=== PATIENT | female | born 2000 | race Hispanic/Latino ===

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

== ENCOUNTER 2019-04-20 16:28 | Emergency (ER) | payer OTHER, SELFPAY ==
[2019-04-20 20:17] LABS: Urine Bacteria <20 /HPF (<20); Urine Culture Reflex Order NOT NEEDED; Urine RBC <5 /HPF (NONE SEEN)
[2019-04-20 20:29] LABS: Urine Blood NEGATIVE (NEG); Urine Glucose NEGATIVE (NEG); Urine Protein NEGATIVE (NEG); Urine pH 5.5 (5.0-7.0)
--- NOTE | 2019-04-20 20:45 | ER ---
Nurse's Notes [facility] Name: Sowmya Cooley Age: 19 yrs Sex: Female : 2000 Arrival Date: 04/20/2019 Time: 16:27 Bed 13 Private MD: Diagnosis: Encounter for screening, unspecified Presentation: 04/20 17:07 Presenting complaint: Patient states: i am having kidney pain in my left side, this tw2 started like a month ago with extreme nausea, i went to the [facility]ryl yesterday and they gave me antibiotics for a UTI because of the puss in my eye, i have been only taking half of the pill and i have been getting dizzy even with half of the pill. gloria prescribed me an antibiotic that didn't make me dizzy. Transition of care: patient was not received from another setting of care. Onset of symptoms was April 20, 2019. Risk Assessment: Do you want to hurt yourself or someone else? Patient reports no desire to harm self or others. Initial Sepsis Screen: Does the patient meet any 2 criteria? No. Patient's initial sepsis screen is negative. Does the patient have a suspected source of infection? No. Patient's initial sepsis screen is negative. Care prior to arrival: None. 17:07 Method Of Arrival: Ambulatory tw2 17:07 Acuity: ADRYAN 3 tw2 17:10 Presenting complaint: Patient states: there is a possibility of me being . tw2 Triage Assessment: 17:10 General: Appears in no apparent distress. Behavior is calm, cooperative, appropriate tw2 for age. Pain: Complains of pain in left mid back. 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 - Social history:: Smoking status: . - Ebola Screening: : Patient denies travel to an Ebola-affected area in the 21 days before illness onset. Screenin:20 Abuse screen: Denies threats or abuse. Denies injuries from another. Nutritional lp1 screening: No deficits noted. Tuberculosis screening: No symptoms or risk factors identified. Fall Risk None identified. Assessment: 19:20 General: Appears in no apparent distress. Behavior is calm, cooperative, appropriate lp1 for age. Pain: Complains of pain in left low back Pain currently is 3 out of 10 on a pain scale. Neuro: Level of Consciousness is awake, alert, obeys commands, Oriented to person, place, time, situation. Cardiovascular: Patient's skin is warm and dry. Respiratory: Respiratory effort is even, unlabored. GI: No signs and/or symptoms were reported involving the gastrointestinal system. : Reports pain in left flank(s). EENT: No signs and/or symptoms were reported regarding the EENT system. Derm: Skin is pink, warm \\T\\ dry. Musculoskeletal: No signs and/or symptoms reported regarding the musculoskeletal system. 21:00 Reassessment: Orthostatic blood pressures completed by tech; Patient states feeling lp1 dizzy upon standing. 21:25 Reassessment: Patient refusing to have labs and medications; States "I have really bad lp1 anxiety and I haven't eaten in about 9 hours so that may be why I got a little dizzy"; Provider notified. Vital Signs: 17:09 BP 147 / 90; Pulse 106; Resp 18; Temp 98.7(O); Pulse Ox 100% on R/A; Weight 58.06 kg tw2 (R); Height 5 ft. 5 in. (165.10 cm) (R); Pain 4/10; 20:51 BP 135 / 77; Pulse 99; Resp 18; oe 20:53 BP 149 / 92; Pulse 101; Resp 18; oe 20:55 BP 146 / 101; Pulse 118; Resp 18; oe 17:09 Body Mass Index 21.30 (58.06 kg, 165.10 cm) tw2 ED Course: 16:27 Patient arrived in ED. as 17:09 Triage completed. tw2 17:09 Arm band placed on. tw2 17:27 Angélica Rush FNP-C [facility]. snw 17:27 Morgan Humphrey MD is Attending Physician. snw 17:45 Urine collected: clean catch specimen, clear, by Carmen Johnston. dh3 19:13 Urine Culture Sent. dh3 19:13 Urine Microscopic Only Sent. dh3 19:19 Lorena Herman, RN is Primary Nurse. lp1 19:21 Patient has correct armband on for positive identification. lp1 21:33 No provider procedures requiring assistance completed. Patient did not have IV access lp1 during this emergency room visit. Administered Medications: No medications were administered Outcome: 20:44 Discharge ordered by . snw 21:33 Discharged to home ambulatory, with significant other. lp1 21:33 Condition: good 21:33 Discharge instructions given to patient, Instructed on discharge instructions, follow up and referral plans. Demonstrated understanding of instructions, follow-up care. 21:37 Patient left the ED. lp1 Signatures: Angélica Rush, PLATEN PRESS FEEDER-C PLATEN PRESS FEEDER-Csnw Patricia Gómez Laura, RN RN lp1 Autumn Foster RN RN tw2 Fabiano Peña Deanna 3
--- NOTE | 2019-04-20 20:46 | EDPHYS ---
Physician Documentation [facility] Name: Sowmya Cooley Age: 19 yrs Sex: Female : 2000 Arrival Date: 04/20/2019 Time: 16:27 Bed 13 Private MD: ED Physician Morgan Humphrey HPI: 04/20 20:48 This 19 yrs old Female presents to ER via Ambulatory with complaints of Flank snw Pain. 20:48 The patient complains of pain in the mid back area. The pain does not radiate. Onset: snw The symptoms/episode began/occurred gradually. Modifying factors: The symptoms are alleviated by nothing. the symptoms are aggravated by nothing. Severity of pain: At its worst the pain was moderate. The patient has experienced similar episodes in the past, multiple times. The patient has been recently seen by a physician: the patient's primary care provider, with similar presenting complaints, was given a prescription for antibiotics. pt states abx made her dizzy so she didn't want to continue them. 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 - Social history:: Smoking status: . - Ebola Screening: : Patient denies travel to an Ebola-affected area in the 21 days before illness onset. ROS: 20:46 Constitutional: Negative for fever, chills, and weight loss. snw 20:46 Eyes: Negative for injury, pain, redness, and discharge, ENT: Negative for injury, pain, and discharge, Neck: Negative for injury, pain, and swelling, Cardiovascular: Negative for chest pain, palpitations, and edema, Respiratory: Negative for shortness of breath, cough, wheezing, and pleuritic chest pain. 20:46 Back: Negative for injury and pain, : Negative for injury, bleeding, discharge, and swelling, MS/Extremity: Negative for injury and deformity, Skin: Negative for injury, rash, and discoloration. 20:46 Constitutional: Positive for body aches, malaise. 20:46 Abdomen/GI: Positive for constipation, abdominal cramps. 20:46 Neuro: Positive for dizziness. Exam: 20:45 Constitutional: This is a well developed, well nourished patient who is awake, alert, snw and in no acute distress. Head/Face: Normocephalic, atraumatic. Eyes: Pupils equal round and reactive to light, extra-ocular motions intact. Lids and lashes normal. Conjunctiva and sclera are non-icteric and not injected. Cornea within normal limits. Periorbital areas with no swelling, redness, or edema. ENT: Nares patent. No nasal discharge, no septal abnormalities noted. Tympanic membranes are normal and external auditory canals are clear. Oropharynx with no redness, swelling, or masses, exudates, or evidence of obstruction, uvula midline. Mucous membranes moist. Neck: Trachea midline, no thyromegaly or masses palpated, and no cervical lymphadenopathy. Supple, full range of motion without nuchal rigidity, or vertebral point tenderness. No Meningismus. Chest/axilla: Normal chest wall appearance and motion. Nontender with no deformity. No lesions are appreciated. Cardiovascular: Regular rate and rhythm with a normal S1 and S2. No gallops, murmurs, or rubs. Normal PMI, no JVD. No pulse deficits. Respiratory: Lungs have equal breath sounds bilaterally, clear to auscultation and percussion. No rales, rhonchi or wheezes noted. No increased work of breathing, no retractions or nasal flaring. Back: No spinal tenderness. No costovertebral tenderness. Full range of motion. Skin: Warm, dry with normal turgor. Normal color with no rashes, no lesions, and no evidence of cellulitis. MS/ Extremity: Pulses equal, no cyanosis. Neurovascular intact. Full, normal range of motion. Neuro: Awake and alert, GCS 15, oriented to person, place, time, and situation. Cranial nerves II-XII grossly intact. Motor strength 5/5 in all extremities. Sensory grossly intact. Cerebellar exam normal. Normal gait. Psych: Awake, alert, with orientation to person, place and time. Behavior, mood, and affect are within normal limits. 20:45 Abdomen/GI: Inspection: abdomen appears normal, Bowel sounds: normal, Palpation: abdomen is soft and non-tender, in all quadrants. Vital Signs: 17:09 BP 147 / 90; Pulse 106; Resp 18; Temp 98.7(O); Pulse Ox 100% on R/A; Weight 58.06 kg tw2 (R); Height 5 ft. 5 in. (165.10 cm) (R); Pain 4/10; 20:51 BP 135 / 77; Pulse 99; Resp 18; oe 20:53 BP 149 / 92; Pulse 101; Resp 18; oe 20:55 BP 146 / 101; Pulse 118; Resp 18; oe 17:09 Body Mass Index 21.30 (58.06 kg, 165.10 cm) tw2 MDM: 19:18 Patient medically screened. snw 20:47 Data reviewed: vital signs, nurses notes. Data interpreted: Pulse oximetry: on room air snw is 100 %. Interpretation: normal. Counseling: I had a detailed discussion with the patient and/or guardian regarding: the historical points, exam findings, and any diagnostic results supporting the discharge/admit diagnosis, the presence of at least one elevated blood pressure reading (>120/80) during this emergency department visit, lab results, the need for outpatient follow up, to return to the emergency department if symptoms worsen or persist or if there are any questions or concerns that arise at home. Special discussion: Based on the patient's Hx, exam, and Dx evaluation, there is no indication for emergent surgery or inpatient Tx. It is understood by the patient/guardian that if the Sx's persist or worsen they need to return immediately for re-evaluation. Based on the history and exam findings, there is no indication for further emergent testing or inpatient evaluation. I discussed with the patient/guardian the need to see the primary care provider for further evaluation of the symptoms. 04/20 17:27 Order name: Urine Culture snw 04/20 17:27 Order name: Urine Microscopic Only; Complete Time: 20:19 snw 04/20 18:21 Order name: Urine Dipstick--Ancillary (enter results); Complete Time: 20:30 sp 04/20 18:21 Order name: Test Urine - POC; Complete Time: 20:30 sp 04/20 17:27 Order name: Urine Test (obtain specimen); Complete Time: 19:12 snw 04/20 17:27 Order name: Urine Dipstick-Ancillary (obtain specimen); Complete Time: 19:11 snw 04/20 20:45 Order name: Orthostatics; Complete Time: 21:00 snw Administered Medications: No medications were administered Disposition: 04/21 09:00 Co-signature as Attending Physician, Morgan Humphrey MD I agree with the assessment and kdr plan of care. Disposition: 04/20/19 20:44 Discharged to Home. Impression: Encounter for screening, unspecified. - Condition is Stable. - Discharge Instructions: Abdominal Pain, Adult, Constipation, Adult, Hypertension, Urinary Tract Infection, Adult, Rehydration, Adult. - School release form, Family Work Release, Medication Reconciliation Form, Thank You Letter, Antibiotic Education, Prescription Opioid Use form. - Follow up: Private Physician; When: Tomorrow; Reason: Recheck today's complaints, Continuance of care, Re-evaluation by your physician. Follow up: Emergency Department; When: As needed; Reason: Worsening of condition. Signatures: Dispatcher [employer] EDIA Morgan Humphrey MD MD [facility] Angélica Rush, GRADER MEAT-C GRADER MEAT-Csnw Lorena Herman, RN RN lp1 Autumn Foster RN RN tw2 Corrections: (The following items were deleted from the chart) 04/20 21:37 20:44 04/20/2019 20:44 Discharged to Home. Impression: Encounter for screening, lp1 unspecified. Condition is Stable. Forms are Medication Reconciliation Form, Thank You Letter, Antibiotic Education, Prescription Opioid Use. Follow up: Private Physician; When: Tomorrow; Reason: Recheck today's complaints, Continuance of care, Re-evaluation by your physician. Follow up: Emergency Department; When: As needed; Reason: Worsening of condition. snw
[2019-04-20] MEDS ORDERED: NA CHLORIDE 0.9% 0 ML ONE (21:12)
== END 2019-04-20 21:37 | disposition home or self-care (01) ==
LOC: ER 16:28
DX: Z13.9 Encounter for screening, unspecified (principal)
CPT/HCPCS: 81003; 81015; 81025; 87086; 87088; 99283; J7030

== ENCOUNTER 2019-04-21 21:06 | Emergency (ER) | payer SELFPAY ==
[2019-04-21 22:03] LABS: Barbiturates NEGATIVE (NEGATIVE); Benzodiazepines NEGATIVE (NEGATIVE); Cocaine NEGATIVE (NEGATIVE); METHAMPHETAM NEGATIVE (NEGATIVE); Methadone NEGATIVE (NEGATIVE); Opiates NEGATIVE (NEGATIVE); Phencyclidine NEGATIVE (NEGATIVE); THC Cannibis NEGATIVE (NEGATIVE)
[2019-04-21 22:08] LABS: Urine Blood NEGATIVE (NEG); Urine Glucose NEGATIVE (NEG); Urine Protein NEGATIVE (NEG); Urine pH 6.5 (5.0-7.0)
[2019-04-21 22:21] LABS: Urine Bacteria NONE SEEN /HPF (<20); Urine RBC <5 /HPF (NONE SEEN)
[2019-04-21 22:22] LABS: Urine Culture Reflex Order NOT NEEDED
[2019-04-21] MEDS ORDERED: NA CHLORIDE 0.9% 1,000 ML ONE (22:31)
[2019-04-21 23:05] LABS: Absolute Lymphocytes (CBC) 1.6 K/uL (0.7-4.9); Basophils % 0.5 % (0-1.3); Hematocrit 42.6 % (36.0-45.0); Lymphocytes % 20.2 % (15.3-44.8); MPV 9.9 fL (7.6-11.3); RBC Red Blood Cell Count 4.75 M/uL (3.86-4.86)
[2019-04-21 23:36] LABS: ALT/SGPT 23 U/L (12-78); AST/SGOT 15 U/L (15-37); Albumin 4.2 g/dL (3.4-5.0); Alkaline Phosphatase 94 U/L (45-117); BUN Blood Urea Nitrogen 18 mg/dL (7-18); Bicarbonate 25 mmol/L (21-32); Bilirubin Direct < 0.1 mg/dL (0-0.2); Bilirubin Total 0.3 mg/dL (0.2-1.0); Glucose Level 101 mg/dL (74-106); Lipase 70 U/L (73-393); Potassium 3.6 mmol/L (3.5-5.1); Protein, Total 7.7 g/dL (6.4-8.2); Sodium Level 141 mmol/L (136-145)
--- NOTE | 2019-04-21 23:37 | ER ---
Nurse's Notes [facility] Name: Sowmya Cooley Age: 19 yrs Sex: Female : 2000 Arrival Date: 04/21/2019 Time: 21:09 Bed 24 Private MD: Diagnosis: Weakness;Dizziness and giddiness Presentation: 04/21 21:12 Presenting complaint: Patient states: "I can't even stand up straight because I feel aj1 really dizzy, and I'm taking antibiotics but today it really hit me." Patient reports that she is taking antibiotics for a UTI. Patient reports diarrhea and headache. Denies fever. Transition of care: patient was not received from another setting of care. Onset of symptoms was April 21, 2019. Risk Assessment: Do you want to hurt yourself or someone else?. Initial Sepsis Screen: Does the patient meet any 2 criteria? RR > 20 per min. HR > 90 bpm. No. Patient's initial sepsis screen is negative. Does the patient have a suspected source of infection? No. Patient's initial sepsis screen is negative. Care prior to arrival: None. 21:12 Method Of Arrival: Wheelchair aj1 21:12 Acuity: ADRYAN 3 aj1 Triage Assessment: 21:15 General: Appears in no apparent distress. uncomfortable, Behavior is calm, cooperative, aj1 appropriate for age. Pain: Complains of pain in top of head Pain currently is 4 out of 10 on a pain scale. Neuro: Level of Consciousness is awake, alert, obeys commands, Oriented to person, place, time, situation. Cardiovascular: Denies chest pain, Patient's skin is warm and dry. Respiratory: Airway is patent Respiratory effort is even, unlabored, Respiratory pattern is regular, symmetrical. 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 - Social history:: Smoking status: Patient/guardian denies using tobacco. - Ebola Screening: : Patient denies travel to an Ebola-affected area in the 21 days before illness onset. Screenin:23 Abuse screen: Denies threats or abuse. Denies injuries from another. Nutritional ak1 screening: No deficits noted. Tuberculosis screening: No symptoms or risk factors identified. Fall Risk None identified. Assessment: 21:44 General: Appears in no apparent distress. Behavior is cooperative, anxious. Neuro: ak1 Level of Consciousness is awake, alert, obeys commands, Oriented to person, place, time, situation, Moves all extremities. Full function. Cardiovascular: Rhythm is sinus tachycardia. Respiratory: Airway is patent Respiratory effort is even, unlabored, Respiratory pattern is regular. GI: Abdomen is non-distended, Bowel sounds present X 4 quads. Reports diarrhea, nausea. : Reports burning with urination, urinary frequency. EENT: No signs and/or symptoms were reported regarding the EENT system. Derm: No signs and/or symptoms reported regarding the dermatologic system. Musculoskeletal: No signs and/or symptoms reported regarding the musculoskeletal system. 22:43 Reassessment: Patient appears in no apparent distress at this time. pt c/o dizziness ak1 with standing and sitting. pt stated dizziness decreased when lying flat. 23:31 Reassessment: pt is extremely anxious. Dr. Bowens at bedside. ak1 04/22 00:01 Reassessment: Patient appears in no apparent distress at this time. Patient and/or ak1 family updated on plan of care and expected duration. Pain level reassessed. Patient is alert, oriented x 3, equal unlabored respirations, skin warm/dry/pink. pt with steady gait. 00:24 Reassessment: pt referred to Dr. Burton and cardiology if pt continues to have ak1 palpitations and anxiety. pt left with family via steady gait. pt resp even and unlabored. Vital Signs: 04/21 21:15 BP 141 / 88; Pulse 131; Resp 24; Temp 99.8; Pulse Ox 100% on R/A; Weight 58.06 kg (R); aj1 Height 5 ft. 5 in. (165.10 cm) (R); Pain 4/10; 21:43 BP 138 / 97 LA Sitting (auto/reg); Pulse 96; Resp 18; Pulse Ox 99% on R/A; ak1 22:18 BP 127 / 94 LA Supine (auto/reg); Pulse 97; Resp 16; ak1 22:20 BP 167 / 106 LA Standing (auto/reg); Pulse 111; Resp 22; ak1 22:43 BP 138 / 94; Pulse 92; Resp 18; Pulse Ox 100% on R/A; ak1 23:32 BP 130 / 85; Pulse 108; Resp 18; Temp 99.1(O); Pulse Ox 99% on R/A; ak1 21:15 Body Mass Index 21.30 (58.06 kg, 165.10 cm) aj1 ED Course: 21:09 Patient arrived in ED. cl3 21:15 Triage completed. aj1 21:15 Arm band placed on Patient placed in an exam room. aj1 21:17 Hodan Rousseau, RN is Primary Nurse. ak1 21:23 Patient has correct armband on for positive identification. Bed in low position. Call ak1 light in reach. Side rails up X 1. Adult w/ patient. Pulse ox on. NIBP on. 22:18 Deuce Bowens MD is Attending Physician. [facility] [place] 22:40 Initial lab(s) drawn, by ga, sent to lab. Inserted saline lock: 20 gauge in right lt1 antecubital area, using aseptic technique. 22:54 EKG done, by ED staff. lt1 04/22 00:01 No provider procedures requiring assistance completed. IV discontinued, intact, ak1 bleeding controlled, No redness/swelling at site. Pressure dressing applied. 01:30 Chest Pa And Lat (2 Views) XRAY In Process Unspecified. EDMS Administered Medications: 04/21 22:43 Drug: NS 0.9% 1000 ml Route: IV; Rate: 1 bolus; Site: right antecubital; ak1 04/22 00:02 Follow up: IV Status: Order to discontinue infusion ak1 Outcome: 04/21 23:36 Discharge ordered by . [facility] [place] 04/22 00:01 Condition: good ak1 Discharge instructions given to patient, family, Instructed on discharge instructions, follow up and referral plans. Demonstrated understanding of instructions, follow-up care. 00:23 Discharged to home ambulatory, with family. ak1 00:25 Patient left the ED. ak1 Signatures: Dispatcher [employer] EDMS Batsheva Desai RN RN aj1 Anderson, Corey, MD MD cha Krenek, Amber, RN RN ak1 Dinorah Perez 1 Isela Salgado cl3 Corrections: (The following items were deleted from the chart) 04/21 22:17 21:43 BP 138 / 97; Pulse 96bpm; Resp 18bpm; Pulse Ox 99% RA; ak1 ak1
--- NOTE | 2019-04-21 23:38 | EDPHYS ---
Physician Documentation [facility] Name: Sowmya Cooley Age: 19 yrs Sex: Female : 2000 Arrival Date: 04/21/2019 Time: 21:09 Bed 24 Private MD: ED Physician Deuce Bowens HPI: 04/21 23:33 This 19 yrs old Female presents to ER via Wheelchair with complaints of High luis m Blood Pressure, Dizziness. 23:33 The patient has elevated blood pressure and discovered this at home. Associated signs luis m and symptoms: The patient has no apparent associated signs or symptoms. Severity of symptoms: At its worst the blood pressure was mild, in the emergency department the blood pressure is unchanged. The patient has not experienced similar symptoms in the past. 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 - Social history:: Smoking status: Patient/guardian denies using tobacco. - Ebola Screening: : Patient denies travel to an Ebola-affected area in the 21 days before illness onset. ROS: 23:34 Constitutional: Negative for fever, chills, and weight loss, Eyes: Negative for injury, luis m pain, redness, and discharge, ENT: Negative for injury, pain, and discharge, Neck: Negative for injury, pain, and swelling, Respiratory: Negative for shortness of breath, cough, wheezing, and pleuritic chest pain, Abdomen/GI: Negative for abdominal pain, nausea, vomiting, diarrhea, and constipation, Back: Negative for injury and pain, : Negative for injury, bleeding, discharge, and swelling, MS/Extremity: Negative for injury and deformity, Skin: Negative for injury, rash, and discoloration, Neuro: Negative for headache, weakness, numbness, tingling, and seizure, Psych: Negative for depression, anxiety, suicide ideation, homicidal ideation, and hallucinations, Allergy/Immunology: Negative for hives, rash, and allergies, Endocrine: Negative for neck swelling, polydipsia, polyuria, polyphagia, and marked weight changes, Hematologic/Lymphatic: Negative for swollen nodes, abnormal bleeding, and unusual bruising. 23:34 Cardiovascular: Positive for palpitations. Exam: 23:34 Constitutional: This is a well developed, well nourished patient who is awake, alert, luis m and in no acute distress. Head/Face: Normocephalic, atraumatic. Eyes: Pupils equal round and reactive to light, extra-ocular motions intact. Lids and lashes normal. Conjunctiva and sclera are non-icteric and not injected. Cornea within normal limits. Periorbital areas with no swelling, redness, or edema. ENT: Nares patent. No nasal discharge, no septal abnormalities noted. Tympanic membranes are normal and external auditory canals are clear. Oropharynx with no redness, swelling, or masses, exudates, or evidence of obstruction, uvula midline. Mucous membranes moist. Neck: Trachea midline, no thyromegaly or masses palpated, and no cervical lymphadenopathy. Supple, full range of motion without nuchal rigidity, or vertebral point tenderness. No Meningismus. Chest/axilla: Normal chest wall appearance and motion. Nontender with no deformity. No lesions are appreciated. Cardiovascular: Regular rate and rhythm with a normal S1 and S2. No gallops, murmurs, or rubs. Normal PMI, no JVD. No pulse deficits. Respiratory: Lungs have equal breath sounds bilaterally, clear to auscultation and percussion. No rales, rhonchi or wheezes noted. No increased work of breathing, no retractions or nasal flaring. Abdomen/GI: Soft, non-tender, with normal bowel sounds. No distension or tympany. No guarding or rebound. No evidence of tenderness throughout. Back: No spinal tenderness. No costovertebral tenderness. Full range of motion. Skin: Warm, dry with normal turgor. Normal color with no rashes, no lesions, and no evidence of cellulitis. MS/ Extremity: Pulses equal, no cyanosis. Neurovascular intact. Full, normal range of motion. Neuro: Awake and alert, GCS 15, oriented to person, place, time, and situation. Cranial nerves II-XII grossly intact. Motor strength 5/5 in all extremities. Sensory grossly intact. Cerebellar exam normal. Normal gait. Psych: Awake, alert, with orientation to person, place and time. Behavior, mood, and affect are within normal limits. 23:36 Musculoskeletal/extremity: Extremities: all appear grossly normal, with no appreciated luis m pain with palpation, ROM: no acute changes, intact in all extremities, Circulation is intact in all extremities. Compartment Syndrome exam of affected extremity: is normal. no pain, no numbness, no tingling, no sensation deficit, no palor, no weak pulses, DVT Exam: no pain, no swelling, no tenderness, negative Homans' sign noted on exam, no appreciated bluish discoloration, no erythema, no increased warmth. Vital Signs: 21:15 BP 141 / 88; Pulse 131; Resp 24; Temp 99.8; Pulse Ox 100% on R/A; Weight 58.06 kg (R); aj1 Height 5 ft. 5 in. (165.10 cm) (R); Pain 4/10; 21:43 BP 138 / 97 LA Sitting (auto/reg); Pulse 96; Resp 18; Pulse Ox 99% on R/A; ak1 22:18 BP 127 / 94 LA Supine (auto/reg); Pulse 97; Resp 16; ak1 22:20 BP 167 / 106 LA Standing (auto/reg); Pulse 111; Resp 22; ak1 22:43 BP 138 / 94; Pulse 92; Resp 18; Pulse Ox 100% on R/A; ak1 23:32 BP 130 / 85; Pulse 108; Resp 18; Temp 99.1(O); Pulse Ox 99% on R/A; ak1 21:15 Body Mass Index 21.30 (58.06 kg, 165.10 cm) aj1 MDM: 22:18 Patient medically screened. [facility] 23:34 Data reviewed: vital signs, nurses notes, lab test result(s), EKG, radiologic studies, [facility] plain films. 04/21 21:34 Order name: Urine Microscopic Only; Complete Time: 23:27 [facility] 04/21 21:34 Order name: Urine Culture [facility] 04/21 21:34 Order name: UDS; Complete Time: 23:27 [facility] 04/21 21:47 Order name: Urine Dipstick--Ancillary (enter results) [facility] 04/21 21:47 Order name: Urine --Ancillary (enter results) [facility] 04/21 22:27 Order name: Basic Metabolic Panel; Complete Time: 23:37 [facility] 04/21 21:34 Order name: Urine Dipstick-Ancillary (obtain specimen); Complete Time: 21:43 [facility] 04/21 22:27 Order name: CBC with Diff; Complete Time: 23:27 [facility] 04/21 22:27 Order name: Creatinine for Radiology; Complete Time: 23:37 [facility] 04/21 22:27 Order name: Hepatic Function; Complete Time: 23:37 [facility] 04/21 22:27 Order name: Lipase; Complete Time: 23:37 [facility] 04/21 22:27 Order name: EKG; Complete Time: 22:29 [facility] 04/21 23:33 Order name: Chest Pa And Lat (2 Views) XRAY [facility] 04/21 21:34 Order name: Urine Test (obtain specimen); Complete Time: 21:43 [facility] 04/21 22:27 Order name: IV Saline Lock; Complete Time: 22:40 [facility] 04/21 22:27 Order name: Labs collected and sent; Complete Time: 22:40 [facility] 04/21 22:27 Order name: EKG - Nurse/Tech; Complete Time: 22:55 [facility] 04/21 23:33 Order name: Orthostatics; Complete Time: 23:34 [facility] Administered Medications: 22:43 Drug: NS 0.9% 1000 ml Route: IV; Rate: 1 bolus; Site: right antecubital; [facility] 04/22 00:02 Follow up: IV Status: Order to discontinue infusion [facility] Disposition: 04/21/19 23:36 Discharged to Home. Impression: Weakness, Dizziness and giddiness. - Condition is Stable. - Discharge Instructions: Dizziness, Weakness, Weakness, [id number]-[id number], Dizziness, [id number]. - Medication Reconciliation Form, Thank You Letter, Antibiotic Education, Prescription Opioid Use form. - Follow up: Private Physician; When: 2 - 3 days; Reason: Recheck today's complaints, Continuance of care, Re-evaluation by your physician. - Problem is new. - Symptoms have improved. Signatures: Dispatcher [employer] Batsheva Uribe, RN RN aj1 Deuce Bowens MD MD cha Krenek, Amber RN RN ak1 Corrections: (The following items were deleted from the chart) 00:25 04/21 23:36 04/21/2019 23:36 Discharged to Home. Impression: Weakness; Dizziness and ak1 giddiness. Condition is Stable. Forms are Medication Reconciliation Form, Thank You Letter, Antibiotic Education, Prescription Opioid Use. Follow up: Private Physician; When: 2 - 3 days; Reason: Recheck today's complaints, Continuance of care, Re-evaluation by your physician. Problem is new. Symptoms have improved. luis m
[2019-04-22 02:10] VITALS: BP 130/85; TEMP 99.1; O2SAT 99
--- NOTE | 2019-04-22 07:50 | RAD REPORT ---
EXAM DESCRIPTION: Emiliana Jones (2 Views)04/22/2019 12:02 am CLINICAL HISTORY: Cough COMPARISON: None FINDINGS: The lungs appear clear of acute infiltrate. The heart is normal size IMPRESSION: No acute abnormalities displayed
--- NOTE | 2019-04-22 08:37 | EKG ---
Test Date: 2019-04-21 Test Time: 22:52:19 Dive Superintendent: MICAHT MEASUREMENT RESULTS: Intervals: Rate: 109 ID: [id number] QRSD: 82 QT: 312 QTc: 420 [place]: P: 68 ID: [id number] QRS: 47 T: 39 INTERPRETIVE STATEMENTS: Sinus tachycardia Otherwise normal ECG No previous ECG available for comparison Electronically Signed On 04-22-19 08:36:31 CDT by Marlon Sun
== END 2019-04-22 00:25 | disposition home or self-care (01) ==
LOC: ER 21:06
DX: R53.1 Weakness (principal); Z88.6 Allergy status to analgesic agent; Z88.8 Allergy status to other drugs, medicaments and biological substances
CPT/HCPCS: 36415; 71046; 80048; 80076; 80307; 81003; 81015; 81025; 83690; 85025; 87086; 87088; 93005; 96360; 99284; J7030

== ENCOUNTER 2022-09-12 09:58 | Emergency (ER) | payer OTHER, SELFPAY ==
--- OUTSIDE RECORDS SUMMARY | 2022-09-12 10:03 | XMS REPORT | Continuity of Care Document ---
:2000 Author Organization [facility] t Address [address] [place] [address] Dr. Gu[address]. [address] [place] [address] Care Team Providers Name Role Phone G_Omayras Attending Clinician Unavailable G_Pappas Admitting Clinician Unavailable Payers Payer Name Policy Type Policy Number Effective Date Expiration Date [facility] [id number] CHOICE (MEDICAID REPLACEMENT - HMO) Problems Condition Condition Condition Status Onset Resolution Last Treating Co mments Source Name Details Category Date Date Treatment Clinician Date History of History of Problem Active 2021-0 M [facility] pre-eclamp Pre-eclamp 5-19 da martir martir 00:00: Medical 00 Group Generalize Generalize Problem Active 2019-07 [facility] d anxiety d Anxiety 0-20 da disorder Disorder 00:00: Medica l 00 Group Late entry Late Entry Problem Active 2019-0 [facility] into into 2-18 da 00:00: Medica l care Care 00 Group Small for Small for Problem Active [facility] gestationa Gestationa da l age l Age Medical fetus Fetus Group Allergies, Adverse Reactions, Alerts Allergy Allergy Status Severity Reaction(s) Onset Inactive Treating Comm ents Source Name Type Date Date Clinician Benadryl Allergy Active [facility] Ibuprofe Allergy Active [facility] Social History Smoking Status Start Date Stop Date Source Former Smoker [facility] Medications Ordered Filled Start Stop Current Ordering Indication Dosage Frequency Signature Comments Components Source Medication Medication Date Date Medication? Clinician (SIG) Name Name Mrat Englandafol No Vitafol [facility] Ultra 29 mg Ultra 29 mg Ultra 29 da iron-1 iron-1 mg iron-1 Medica l mg-200 mg mg-200 mg mg-200 mg Group capsule capsule capsule TAKE ONE TAKE ONE TAKE ONE (1) (1) (1) CAPSULE(S) CAPSULE(S) CAPSULE(S) BY MOUTH BY MOUTH BY MOUTH ONCE A DAY. ONCE A DAY. ONCE A DAY. Vital Signs Vital Name Observation Time Observation Value Comments Source BP Diastolic 2022-03-25 00:00:00 92 mm[Hg] [facility] Height 2022-03-25 00:00:00 65 [in_i] [facility] BMI (Body Mass 2022-03-25 00:00:00 25.1 kg/m2 [facility] Medical Index) Group BP Systolic 2022-03-25 00:00:00 140 mm[Hg] [facility] Body Weight 2022-03-25 00:00:00 150.8 [lb_av] [facility] BP Diastolic 2022-02-21 00:00:00 83 mm[Hg] [facility] Height 2022-02-21 00:00:00 65 [in_i] [facility] BMI (Body Mass 2022-02-21 00:00:00 28.3 kg/m2 [facility] Medical Index) Group BP Systolic 2022-02-21 00:00:00 118 mm[Hg] [facility] Body Weight 2022-02-21 00:00:00 170.2 [lb_av] [facility] BP Diastolic 2022-02-14 00:00:00 80 mm[Hg] [facility] Height 2022-02-14 00:00:00 65 [in_i] [facility] BMI (Body Mass 2022-02-14 00:00:00 28.3 kg/m2 [facility] Medical Index) Group BP Systolic 2022-02-14 00:00:00 143 mm[Hg] [facility] Body Weight 2022-02-14 00:00:00 169.9 [lb_av] [facility] BP Diastolic 2022-02-06 00:00:00 84 mm[Hg] [facility] Height 2022-02-06 00:00:00 65 [in_i] [facility] BMI (Body Mass 2022-02-06 00:00:00 28.2 kg/m2 [facility] Medical Index) Group BP Systolic 2022-02-06 00:00:00 126 mm[Hg] [facility] Body Weight 2022-02-06 00:00:00 169.6 [lb_av] [facility] BP Diastolic 2022-01-28 00:00:00 79 mm[Hg] [facility] Height 2022-01-28 00:00:00 65 [in_i] [facility] BMI (Body Mass 2022-01-28 00:00:00 28 kg/m2 [facility] Medical Index) Group BP Systolic 2022-01-28 00:00:00 128 mm[Hg] [facility] Body Weight 2022-01-28 00:00:00 168.3 [lb_av] [facility] BP Diastolic 2022-01-21 00:00:00 80 mm[Hg] [facility] Height 2022-01-21 00:00:00 65 [in_i] [facility] BMI (Body Mass 2022-01-21 00:00:00 27.7 kg/m2 [facility] Medical Index) Group BP Systolic 2022-01-21 00:00:00 119 mm[Hg] [facility] Body Weight 2022-01-21 00:00:00 166.7 [lb_av] [facility] BP Diastolic 2022-01-14 00:00:00 75 mm[Hg] [facility] Height 2022-01-14 00:00:00 65 [in_i] [facility] BMI (Body Mass 2022-01-14 00:00:00 27.7 kg/m2 [facility] Medical Index) Group BP Systolic 2022-01-14 00:00:00 142 mm[Hg] [facility] Body Weight 2022-01-14 00:00:00 166.4 [lb_av] [facility] BP Diastolic 2021-12-30 00:00:00 76 mm[Hg] [facility] Height 2021-12-30 00:00:00 65 [in_i] [facility] BMI (Body Mass 2021-12-30 00:00:00 26.7 kg/m2 [facility] Medical Index) Group BP Systolic 2021-12-30 00:00:00 126 mm[Hg] [facility] Body Weight 2021-12-30 00:00:00 160.7 [lb_av] [facility] BP Diastolic 2021-12-12 00:00:00 85 mm[Hg] [facility] Height 2021-12-12 00:00:00 65 [in_i] [facility] BMI (Body Mass 2021-12-12 00:00:00 26.3 kg/m2 [facility] Medical Index) Group BP Systolic 2021-12-12 00:00:00 138 mm[Hg] [facility] Body Weight 2021-12-12 00:00:00 158 [lb_av] [facility] BP Systolic 2020-09-07 00:00:00 145 mm[Hg] [facility] Body Weight 2020-09-07 00:00:00 154.1 [lb_av] [facility] BP Diastolic 2020-09-07 00:00:00 84 mm[Hg] [facility] Height 2020-09-07 00:00:00 65 [in_i] [facility] BMI (Body Mass 2020-09-07 00:00:00 25.6 kg/m2 [facility] Medical Index) Group BP Diastolic 2020-05-15 00:00:00 88 mm[Hg] [facility] Height 2020-05-15 00:00:00 65 [in_i] [facility] BP Systolic 2020-05-15 00:00:00 144 mm[Hg] [facility] BP Diastolic 2018-12-15 00:00:00 96 mm[Hg] [facility] Height 2018-12-15 00:00:00 65 [in_i] [facility] BMI (Body Mass 2018-12-15 00:00:00 22.9 kg/m2 [facility] Medical Index) Group BP Systolic 2018-12-15 00:00:00 155 mm[Hg] [facility] Body Weight 2018-12-15 00:00:00 137.6 [lb_av] [facility] BP Diastolic 2018-11-24 00:00:00 93 mm[Hg] [facility] Height 2018-11-24 00:00:00 65 [in_i] [facility] BMI (Body Mass 2018-11-24 00:00:00 23.7 kg/m2 [facility] Medical Index) Group BP Systolic 2018-11-24 00:00:00 148 mm[Hg] [facility] Body Weight 2018-11-24 00:00:00 142.4 [lb_av] [facility] BP Diastolic 2018-11-02 00:00:00 78 mm[Hg] [facility] Height 2018-11-02 00:00:00 65 [in_i] [facility] BMI (Body Mass 2018-11-02 00:00:00 26.5 kg/m2 [facility] Medical Index) Group BP Systolic 2018-11-02 00:00:00 131 mm[Hg] [facility] Body Weight 2018-11-02 00:00:00 159 [lb_av] [facility] BP Diastolic 2018-10-25 00:00:00 90 mm[Hg] [facility] Height 2018-10-25 00:00:00 65 [in_i] [facility] BMI (Body Mass 2018-10-25 00:00:00 26.8 kg/m2 [facility] Medical Index) Group BP Systolic 2018-10-25 00:00:00 141 mm[Hg] [facility] Body Weight 2018-10-25 00:00:00 161 [lb_av] [facility] BP Diastolic 2018-10-11 00:00:00 71 mm[Hg] [facility] Height 2018-10-11 00:00:00 65 [in_i] [facility] BMI (Body Mass 2018-10-11 00:00:00 27 kg/m2 [facility] BP Systolic 2018-10-11 00:00:00 150 mm[Hg] [facility] Body Weight 2018-10-11 00:00:00 162 [lb_av] [facility] BP Diastolic 2018-09-16 00:00:00 78 mm[Hg] [facility] Height 2018-09-16 00:00:00 65 [in_i] [facility] BMI (Body Mass 2018-09-16 00:00:00 25.8 kg/m2 [facility] BP Systolic 2018-09-16 00:00:00 136 mm[Hg] [facility] Body Weight 2018-09-16 00:00:00 155 [lb_av] [facility] BP Diastolic 2018-09-13 00:00:00 67 mm[Hg] [facility] Height 2018-09-13 00:00:00 65 [in_i] [facility] BMI (Body Mass 2018-09-13 00:00:00 25.8 kg/m2 [facility] BP Systolic 2018-09-13 00:00:00 136 mm[Hg] [facility] Body Weight 2018-09-13 00:00:00 155 [lb_av] [facility] Procedures Procedure Date / Time Performing Clinician Source Performed US(FBP)W/0 NON STRESS 2022-02-21 00:00:00 [facility] US(FBP)W/0 NON STRESS 2022-02-14 00:00:00 [facility] US, obstetric, limited 2022-02-06 00:00:00 [facility] US(FBP)W/0 NON STRESS 2022-02-06 00:00:00 [facility] US(FBP)W/0 NON STRESS 2022-01-28 00:00:00 [facility] US(FBP)W/0 NON STRESS 2022-01-21 00:00:00 [facility] US, obstetric, limited 2022-01-14 [facility] NON STRESS 2022-01-14 [facility], obstetric, limited 2021-12-30 [facility], [facility], 2nd or 3rd 2021-12-24 00:00:00 [facility] ULTRASOUND, 2021-12-12 00:00:00 [facility] UTERUS REAL TIME WITH Group IMAGE DOC, AND MATERNAL EVAL PLUS DETAILED ANATOMIC EXAMINATION, TRANSABDOMINAL APPROACH; SINGLE OR FIRST GESTATION US, obstetric, limited 2020-09-07 00:00:00 [facility] ULTRASOUND, 2020-05-15 00:00:00 [facility] UTERUS REAL TIME WITH Group IMAGE DOC, AND MATERNAL EVAL PLUS DETAILED ANATOMIC EXAMINATION, TRANSABDOMINAL APPROACH; SINGLE OR FIRST GESTATION US(FBP)W/0 NON STRESS 2018-11-02 00:00:00 [facility] Medical TEST Group US, obstetric, limited 2018-10-25 00:00:00 [facility] US, obstetric, limited 2018-09-16 00:00:00 [facility] Encounters Start End Encounter Admission Attending Care Care Encounter Source Date/Time Date/Time Type Type Clinicians Facility Department ID 2022-03-25 2022-03-25 Carl G_[place] - [id number] [facility] 00:00:00 00:00:00 Jerad Hdz 0830 amber [facility] cor[facility] MD: [address] [place] [phone] , Ph. [phone] 2022-02-21 2022-02-21 Claudio G_[place] - [id number] 2 [facility] 00:00:00 00:00:00 Discovery Jagdish Silverio MD: [address] [place] [address] - [address], [place] [address] , Ph. [phone] 2022-02-19 2022-02-19 Outpatient G_Pappas [facility] MMG [id number] [facility] 00:00:00 00:00:00 0727 [facility] 2022-02-14 2022-02-14 Claudio G_[place]app[place] - [id number] 2 [facility] 00:00:00 00:00:00 Discovery Nusrat 0722 amber MD: [address] [place] [phone] , Ph. [phone] 2022-02-06 2022-02-06 [place] [id number] [facility] 00:00:00 00:00:00 Discovery Nusrat 0714 amber MD: [address] [place] [phone] , Ph. [phone] 2022-01-28 2022-01-28 Claudio Ad[place]Pappas [place] - [id number] 2 [facility] 00:00:00 00:00:00 Discovery Nusrat 0705 amber MD: [address] [place] [phone] , Ph. [phone] 2022-01-21 2022-01-21 Claudio Ad[place]Pappas [place] - [id number] 2 [facility] 00:00:00 00:00:00 Discovery Nusrat 0628 amber MD: [address] [place] [phone] , Ph. [phone] 2022-01-14 2022-01-14 Claudio G_[place] - [id number] 2 [facility] 00:00:00 00:00:00 Discovery Nusrat 0621 amber MD: [address] [place] [phone] , Ph. [phone] 2021-12-30 2021-12-30 Claudio G_[place]app[place] - [id number] 2 [facility] 00:00:00 00:00:00 Discovery Nusrat 0606 amber MD: [address] [place] [phone] , Ph. [phone] 2021-12-27 2021-12-27 Outpatient G_Pappas [facility] [place] [id number] [facility] 11:52:00 11:52:00 0603 da [facility] 2021-12-12 2021-12-12 Mont[place]errat G_[place] - [id number] 2 [facility] 00:00:00 00:00:00 Discovery Joe 0519 da [facility]-: [address] [address] , Ph. [phone] 2020-09-07 2020-09-07 Claudio G_[place]app[place] - [id number] [facility] 00:00:00 00:00:00 Discovery Nusrat 0212 da MD: [address] [place] [phone] , Ph. [phone] 2020-06-25 2020-06-25 Outpatient G_Pappas [facility] MMG [id number] [facility] 10:27:00 10:27:00 1130 da [facility] 2020-05-15 2020-05-15 Claudio G_[place]app[place] - [id number] 0 [facility] 00:00:00 00:00:00 Discovery Nusrat 1020 da MD: [address] [place] [phone] , Ph. [phone] 2018-12-24 2018-12-24 Outpatient G_Pappas MMG MMG [id number] [facility] 11:35:00 11:35:00 0531 amber [facility] 2018-12-15 2018-12-15 [place] - [id number] [facility] 00:00:00 00:00:00 Discovery Jacobo 0522 da NP: [address] [place] [address] [place] [address] , Ph. [phone] 2018-11-24 2018-11-24 Pauline [place] [facility] [place] [place] - [id number] [id number] [facility] 00:00:00 00:00:00 Discovery Jacobo 0501 da WHNP: [address] [place] [address], [place] [address], [place] [address] , Ph. [phone] 2018-11-02 2018-11-02 [place] - [id number] [facility] 00:00:00 00:00:00 Discovery Nusrat 0409 da MD: [address] [place] [address], [place] [address], [place] [address] , Ph. [phone] 2018-10-25 2018-10-25 [place] - [id number] [facility] 00:00:00 00:00:00 Discovery Nusrat 0401 da MD: [address] [place] [address], [place] [address], [place] [address] , Ph. [phone] 2018-10-11 2018-10-11 Pauline [place] [facility] [place] [place] - [id number] [id number] [facility] 00:00:00 00:00:00 Discovery Jacobo 0318 da WHNP: [address] [place] [phone] , Ph. [phone] 2018-09-16 2018-09-16 [place] - [id number] [facility] 00:00:00 00:00:00 Discovery Nusrat 0221 da MD: [address] [place] [address], [place] [address] , Ph. [phone] 2018-09-13 2018-09-13 [place] - [id number] [facility] 00:00:00 00:00:00 Discovery Nusrat 0218 da MD: [address] [place] [address] , Ph. [phone] Results Test Description Test Time Test Comments Results Result Comments Source CBC W Auto Differential panel - Blood 2022-02-25 11:10:00 Test Item Value Reference Range Interpretation Comme nts white blood count (test code = white blood count) 13.0 K/uL 4.0- 11.5 red blood count (test code = red blood count) 3.97 M/uL 3.80-5.2 0 hemoglobin (test code = hemoglobin) 11.0 g/dL 10.5-15.7 hematocrit (test code = hematocrit) 36.1 % 34.0-50.0 MCV [Entitic volume] (test code = 92722-4) 90.9 fL 86.0-100.0 mean corpuscular hemoglobin (test code = mean corpuscular 27.7 pg 26.2-33.4 hemoglobin) mean corpuscular HGB conc (test code = mean corpuscular HGB 30.5 g/dL 30.0-34.0 conc) red cell distribution width (test code = red cell 14.1 % 12.0 -15.5 distribution width) platelet count (test code = platelet count) 264 K/uL 165-450 mean platelet volume (test code = mean platelet volume) 11.3 fL 9.4-12.6 Segmented neutrophils/100 leukocytes in Blood (test code = 67.8 % 44.4-80.1 23428-0) Immature granulocytes [#/volume] in Blood (test code = 0.06 K/uL 0.00-0.03 H 53799-2) lymphocyte% (test code = lymphocyte%) 22.0 % 10.0-50.0 mono % (test code = mono %) 8.9 % 3.6-12.0 eos % (test code = eos %) 0.6 % 0.0-5.4 basophil % (test code = basophil %) 0.2 % 0.1-1.2 Band form neutrophils [#/volume] in Blood (test code = 8.78 K/uL 1.56-6.13 H 04442-8) Lymphocytes [#/volume] in Specimen by Automated count (test 2.85 K/uL 1.18-3.74 code = 19134-0) mono # (test code = mono #) 1.15 K/uL 0.24-0.86 H eos # (test code = eos #) 0.08 K/uL 0.04-0.36 basophil # (test code = basophil #) 0.03 K/uL 0.01-0.08 NRBC% (test code = NRBC%) 0 /100 WBC 0-0.2 NRBC# (test code = NRBC#) 0 K/uL [facility], method unspecified - [id number] 11:10:00NeutrophilsBandLymphocyteAtypical LymphMonocyteEosinophilBasophilMetamyelocyteMyelocytePromyelocyteBlastsNucleated Red Blood CellAbs Neutrophil Count (Man)Abs Lymph Count (Man)Abs Monocyte Count (Man)Abs Eosinophil Count (Man)Abs Basophil Count (Man)Platelet EstimatePlatelet MorphologyPoikilocytosisMacrocytosisClaiborne [facility] W Auto Differential panel - [id number] 08:55:00 Test Item Value Reference Range Interpretation Comments white blood count (test code = 9.1 K/uL 4.0-11.5 white blood count) red blood count (test code = red 4.15 M/uL 3.80-5.20 blood count) hemoglobin (test code = 11.3 g/dL 10.5-15.7 hemoglobin) hematocrit (test code = 37.1 % 34.0-50.0 hematocrit) MCV [Entitic volume] (test code = 89.4 fL 86.0-100.0 76436-6) mean corpuscular hemoglobin (test 27.2 pg 26.2-33.4 code = mean corpuscular hemoglobin) mean corpuscular HGB conc (test 30.5 g/dL 30.0-34.0 code = mean corpuscular HGB conc) red cell distribution width (test 13.9 % 12.0-15.5 code = red cell distribution width) platelet count (test code = 243 K/uL 165-450 platelet count) mean platelet volume (test code = 10.9 fL 9.4-12.6 mean platelet volume) Segmented neutrophils/100 56.4 % 44.4-80.1 leukocytes in Blood (test code = 63673-2) Immature granulocytes [#/volume] 0.04 K/uL 0.00-0.03 H in Blood (test code = 11637-6) lymphocyte% (test code = 34.8 % 10.0-50.0 lymphocyte%) mono % (test code = mono %) 7.4 % 3.6-12.0 eos % (test code = eos %) 0.9 % 0.0-5.4 basophil % (test code = basophil 0.1 % 0.1-1.2 %) Band form neutrophils [#/volume] 5.12 K/uL 1.56-6.13 in Blood (test code = 27327-1) Lymphocytes [#/volume] in Specimen 3.16 K/uL 1.18-3.74 by Automated count (test code = 85563-1) mono # (test code = mono #) 0.67 K/uL 0.24-0.86 eos # (test code = eos #) 0.08 K/uL 0.04-0.36 basophil # (test code = basophil 0.01 K/uL 0.01-0.08 #) NRBC% (test code = NRBC%) 0 /100 WBC 0-0.2 NRBC# (test code = NRBC#) 0 K/uL [facility] panel, method unspecified - [id number] 08:55:00NeutrophilsBandLymphocyteAtypical LymphMonocyteEosinophilBasophilMetamyelocyteMyelocytePromyelocyteBlastsNucleated Red Blood CellAbs Neutrophil Count (Man)Abs Lymph Count (Man)Abs Monocyte Count (Man)Abs Eosinophil Count (Man)Abs Basophil Count (Man)Platelet EstimatePlatelet MorphologyPoikilocytosisMacrocytosisRouleauMataOCH Regional Medical CenterBlood type and Indirect antibody screen panel - [id number] 08:55:00 Test Item Value Reference Range Interpretation Comments Rh [Type] in Blood (test code = 4+ 10352-5) ABO and Rh group panel - Blood O positive (test code = 27809-7) [facility]iReagin Ab [Presence] in Serum by [id number] 08:55:00 Test Item Value Reference Range Interpretation Comments Reagin Ab [Presence] in Serum by nonreactive nonreactive RPR (test code = 45587-3) [facility]iHepatitis B virus surface Ag [Presence] in Serum 2022-02-24 08:55:00 Test Item Value Reference Range Interpretation Comments .hepatitis B surface antigen (test negative negative code = .hepatitis B surface antigen) [facility]iUrinalysis macro (dipstick) panel - [id number] 16:24:52 Test Item Value Reference Range Interpretation Comments Leukocytes (test code = Negative Leukocytes) Nitrite (test code = negative Nitrite) Urobilinogen (test code = .2 Urobilinogen) Protein (test code = Negative Protein) pH (test code = pH) 6.0 Blood (test code = Blood) Non-Hemolyzed: Trace Specific Ambrose (test 1.010 code = Specific Ambrose) Ketone (test code = Negative Ketone) Bilirubin (test code = Negative Bilirubin) Glucose (test code = Negative Glucose) Appearance (test code = Clear Appearance) Color (test code = Color) Yellow [facility]iUrinalysis macro (dipstick) panel - [id number] 16:06:02 Test Item Value Reference Range Interpretation Comments Leukocytes (test code = Leukocytes) Negative Nitrite (test code = Nitrite) positive Urobilinogen (test code = .2 Urobilinogen) Protein (test code = Protein) Negative pH (test code = pH) 6.0 Blood (test code = Blood) Negative Specific Ambrose (test code = 1.030 Specific Ambrose) Ketone (test code = Ketone) Negative Bilirubin (test code = Bilirubin) Negative Glucose (test code = Glucose) Negative Appearance (test code = Appearance) Clear Color (test code = Color) Yellow [facility]iUrinalysis macro (dipstick) panel - [id number] 16:06:02 Test Item Value Reference Range Interpretation Comments Leukocytes (test code = Leukocytes) Negative Nitrite (test code = Nitrite) positive Urobilinogen (test code = .2 Urobilinogen) Protein (test code = Protein) Negative pH (test code = pH) 6.0 Blood (test code = Blood) Negative Specific Ambrose (test code = 1.030 Specific Ambrose) Ketone (test code = Ketone) Negative Bilirubin (test code = Bilirubin) Negative Glucose (test code = Glucose) Negative Appearance (test code = Appearance) Clear Color (test code = Color) Yellow [facility]iUrinalysis macro (dipstick) panel - [id number] 14:34:22 Test Item Value Reference Range Interpretation Comments Leukocytes (test code = Leukocytes) Negative Nitrite (test code = Nitrite) negative Urobilinogen (test code = .2 Urobilinogen) Protein (test code = Protein) Negative pH (test code = pH) 6.5 Blood (test code = Blood) Negative Specific Ambrose (test code = 1.010 Specific Ambrose) Ketone (test code = Ketone) Negative Bilirubin (test code = Bilirubin) Negative Glucose (test code = Glucose) Negative Appearance (test code = Appearance) Clear Color (test code = Color) Yellow [facility]iUrinalysis macro (dipstick) panel - [id number] 14:34:22 Test Item Value Reference Range Interpretation Comments Leukocytes (test code = Leukocytes) Negative Nitrite (test code = Nitrite) negative Urobilinogen (test code = .2 Urobilinogen) Protein (test code = Protein) Negative pH (test code = pH) 6.5 Blood (test code = Blood) Negative Specific Ambrose (test code = 1.010 Specific Ambrose) Ketone (test code = Ketone) Negative Bilirubin (test code = Bilirubin) Negative Glucose (test code = Glucose) Negative Appearance (test code = Appearance) Clear Color (test code = Color) Yellow [facility]iUrinalysis macro (dipstick) panel - [id number] 14:34:22 Test Item Value Reference Range Interpretation Comments Leukocytes (test code = Leukocytes) Negative Nitrite (test code = Nitrite) negative Urobilinogen (test code = .2 Urobilinogen) Protein (test code = Protein) Negative pH (test code = pH) 6.5 Blood (test code = Blood) Negative Specific Ambrose (test code = 1.010 Specific Ambrose) Ketone (test code = Ketone) Negative Bilirubin (test code = Bilirubin) Negative Glucose (test code = Glucose) Negative Appearance (test code = Appearance) Clear Color (test code = Color) Yellow [facility]iUrinalysis macro (dipstick) panel - [id number] 15:56:17 Test Item Value Reference Range Interpretation Comments Leukocytes (test code = Leukocytes) Negative Nitrite (test code = Nitrite) negative Urobilinogen (test code = .2 Urobilinogen) Protein (test code = Protein) Negative pH (test code = pH) 6.5 Blood (test code = Blood) Negative Specific Ambrose (test code = 1.015 Specific Ambrose) Ketone (test code = Ketone) Negative Bilirubin (test code = Bilirubin) Negative Glucose (test code = Glucose) 100 Appearance (test code = Appearance) Clear Color (test code = Color) Yellow [facility]iUrinalysis macro (dipstick) panel - [id number] 15:56:17 Test Item Value Reference Range Interpretation Comments Leukocytes (test code = Leukocytes) Negative Nitrite (test code = Nitrite) negative Urobilinogen (test code = .2 Urobilinogen) Protein (test code = Protein) Negative pH (test code = pH) 6.5 Blood (test code = Blood) Negative Specific Ambrose (test code = 1.015 Specific [place]) Ketone (test code = Ketone) Negative Bilirubin (test code = Bilirubin) Negative Glucose (test code = Glucose) 100 Appearance (test code = Appearance) Clear Color (test code = Color) [facility] (dipstick) panel - [id number] 15:56:17 Test Item Value Reference Range Interpretation Comments Leukocytes (test code = Leukocytes) Negative Nitrite (test code = Nitrite) negative Urobilinogen (test code = .2 Urobilinogen) Protein (test code = Protein) Negative pH (test code = pH) 6.5 Blood (test code = Blood) Negative Specific Ambrose (test code = 1.015 Specific [place]) Ketone (test code = Ketone) Negative Bilirubin (test code = Bilirubin) Negative Glucose (test code = Glucose) 100 Appearance (test code = Appearance) Clear Color (test code = Color) Yellow [facility] macro (dipstick) panel - [id number] 15:56:17 Test Item Value Reference Range Interpretation Comments Leukocytes (test code = Leukocytes) Negative Nitrite (test code = Nitrite) negative Urobilinogen (test code = .2 Urobilinogen) Protein (test code = Protein) Negative pH (test code = pH) 6.5 Blood (test code = Blood) Negative Specific [place]rose (test code = 1.015 Specific [place]) Ketone (test code = Ketone) Negative Bilirubin (test code = Bilirubin) Negative Glucose (test code = Glucose) 100 Appearance (test code = Appearance) Clear Color (test code = Color) [facility] streptococcus group [id number] 00:00:00 Test Item Value Reference Range Interpretation Comments group B strep (test code = group B negative strep) [facility]/rectal, streptococcus group [id number] 00:00:00 Test Item Value Reference Range Interpretation Comments group B strep (test code = group B negative strep) [facility]/rectal, streptococcus group [id number] 00:00:00 Test Item Value Reference Range Interpretation Comments group B strep (test code = group B negative strep) [facility] GroupUr[facility] (dipstick) [facility] - [id number] 15:54:06 Test Item Value Reference Range Interpretation Comments Leukocytes (test code = Leukocytes) Negative Nitrite (test code = Nitrite) negative Urobilinogen (test code = .2 Urobilinogen) Protein (test code = Protein) Negative pH (test code = pH) 7.0 Blood (test code = Blood) Negative Specific [place]rose (test code = 1.015 Specific [place]) Ketone (test code = Ketone) Negative Bilirubin (test code = Bilirubin) Negative Glucose (test code = Glucose) Negative Appearance (test code = Appearance) Clear Color (test code = Color) Yellow [facility] GroupUrinalysis macro (dipstick) panel - [id number] 15:54:06 Test Item Value Reference Range Interpretation Comments Leukocytes (test code = Leukocytes) Negative Nitrite (test code = Nitrite) negative Urobilinogen (test code = .2 Urobilinogen) Protein (test code = Protein) Negative pH (test code = pH) 7.0 Blood (test code = Blood) Negative Specific [place]rose (test code = 1.015 Specific [place]) Ketone (test code = Ketone) Negative Bilirubin (test code = Bilirubin) Negative Glucose (test code = Glucose) Negative Appearance (test code = Appearance) Clear Color (test code = Color) Yellow [facility] GroupUrinalysis macro (dipstick) panel - [id number] 15:54:06 Test Item Value Reference Range Interpretation Comments Leukocytes (test code = Leukocytes) Negative Nitrite (test code = Nitrite) negative Urobilinogen (test code = .2 Urobilinogen) Protein (test code = Protein) Negative pH (test code = pH) 7.0 Blood (test code = Blood) Negative Specific [place]rose (test code = 1.015 Specific [place]) Ketone (test code = Ketone) Negative Bilirubin (test code = Bilirubin) Negative Glucose (test code = Glucose) Negative Appearance (test code = Appearance) Clear Color (test code = Color) Yellow [facility] (dipstick) panel - [id number] 15:54:06 Test Item Value Reference Range Interpretation Comments Leukocytes (test code = Leukocytes) Negative Nitrite (test code = Nitrite) negative Urobilinogen (test code = .2 Urobilinogen) Protein (test code = Protein) Negative pH (test code = pH) 7.0 Blood (test code = Blood) Negative Specific [place] (test code = 1.015 Specific [place]) Ketone (test code = Ketone) Negative Bilirubin (test code = Bilirubin) Negative Glucose (test code = Glucose) Negative Appearance (test code = Appearance) Clear Color (test code = Color) Yellow [facility] - [id number] 16:03:01 Test Item Value Reference Range Interpretation Comments Leukocytes (test code = Leukocytes) Negative Nitrite (test code = Nitrite) negative Urobilinogen (test code = .2 Urobilinogen) Protein (test code = Protein) Negative pH (test code = pH) 6.5 Blood (test code = Blood) Negative Specific [place]rose (test code = 1.020 Specific [place]) Ketone (test code = Ketone) Negative Bilirubin (test code = Bilirubin) Negative Glucose (test code = Glucose) 250 Appearance (test code = Appearance) Clear Color (test code = Color) Yellow [facility] (dipstick) panel - [id number] 16:03:01 Test Item Value Reference Range Interpretation Comments Leukocytes (test code = Leukocytes) Negative Nitrite (test code = Nitrite) negative Urobilinogen (test code = .2 Urobilinogen) Protein (test code = Protein) Negative pH (test code = pH) 6.5 Blood (test code = Blood) Negative Specific [place]rose (test code = 1.020 Specific [place]) Ketone (test code = Ketone) Negative Bilirubin (test code = Bilirubin) Negative Glucose (test code = Glucose) 250 Appearance (test code = Appearance) Clear Color (test code = Color) Yellow [facility] macro (dipstick) panel - [id number] 16:03:01 Test Item Value Reference Range Interpretation Comments Leukocytes (test code = Leukocytes) Negative Nitrite (test code = Nitrite) negative Urobilinogen (test code = .2 Urobilinogen) Protein (test code = Protein) Negative pH (test code = pH) 6.5 Blood (test code = Blood) Negative Specific [place] (test code = 1.020 Specific [place]) Ketone (test code = Ketone) Negative Bilirubin (test code = Bilirubin) Negative Glucose (test code = Glucose) 250 Appearance (test code = Appearance) Clear Color (test code = Color) Yellow [facility] macro (dipstick) panel - [id number] 16:03:01 Test Item Value Reference Range Interpretation Comments Leukocytes (test code = Leukocytes) Negative Nitrite (test code = Nitrite) negative Urobilinogen (test code = .2 Urobilinogen) Protein (test code = Protein) Negative pH (test code = pH) 6.5 Blood (test code = Blood) Negative Specific [place] (test code = 1.020 Specific [place]) Ketone (test code = Ketone) Negative Bilirubin (test code = Bilirubin) Negative Glucose (test code = Glucose) 250 Appearance (test code = Appearance) Clear Color (test code = Color) Yellow [facility] macro (dipstick) panel - [id number] 16:16:09 Test Item Value Reference Range Interpretation Comments Leukocytes (test code = Leukocytes) Negative Nitrite (test code = Nitrite) negative Urobilinogen (test code = .2 Urobilinogen) Protein (test code = Protein) Negative pH (test code = pH) 7.0 Blood (test code = Blood) Small Specific [place] (test code = 1.015 Specific [place]) Ketone (test code = Ketone) Negative Bilirubin (test code = Bilirubin) Negative Glucose (test code = Glucose) Negative Appearance (test code = Appearance) Clear Color (test code = Color) Yellow [facility] macro (dipstick) panel - [id number] 16:16:09 Test Item Value Reference Range Interpretation Comments Leukocytes (test code = Leukocytes) Negative Nitrite (test code = Nitrite) negative Urobilinogen (test code = .2 Urobilinogen) Protein (test code = Protein) Negative pH (test code = pH) 7.0 Blood (test code = Blood) Small Specific [place] (test code = 1.015 Specific [place]) Ketone (test code = Ketone) Negative Bilirubin (test code = Bilirubin) Negative Glucose (test code = Glucose) Negative Appearance (test code = Appearance) Clear Color (test code = Color) Yellow [facility] macro (dipstick) panel - [id number] 16:16:09 Test Item Value Reference Range Interpretation Comments Leukocytes (test code = Leukocytes) Negative Nitrite (test code = Nitrite) negative Urobilinogen (test code = .2 Urobilinogen) Protein (test code = Protein) Negative pH (test code = pH) 7.0 Blood (test code = Blood) Small Specific [place] (test code = 1.015 Specific [place]) Ketone (test code = Ketone) Negative Bilirubin (test code = Bilirubin) Negative Glucose (test code = Glucose) Negative Appearance (test code = Appearance) Clear Color (test code = Color) Yellow [facility] macro (dipstick) panel - [id number] 16:16:09 Test Item Value Reference Range Interpretation Comments Leukocytes (test code = Leukocytes) Negative Nitrite (test code = Nitrite) negative Urobilinogen (test code = .2 Urobilinogen) Protein (test code = Protein) Negative pH (test code = pH) 7.0 Blood (test code = Blood) Small Specific [place] (test code = 1.015 Specific [place]) Ketone (test code = Ketone) Negative Bilirubin (test code = Bilirubin) Negative Glucose (test code = Glucose) Negative Appearance (test code = Appearance) Clear Color (test code = Color) Yellow [facility], [facility] + CT/NG/TV + reflex HR [id number] 00:00:00 Test Item Value Reference Range Interpretation Comments TP reflex HPV ASCUS,CT/NG/TV (test normal code = TP reflex HPV ASCUS,CT/NG/TV) CT/NG (test code = CT/NG) normal trichomonas vaginalis addon - swab normal (test code = trichomonas vaginalis addon - swab) [facility] macro (dipstick) panel - [id number] 09:17:51 Test Item Value Reference Range Interpretation Comments Leukocytes (test code = Leukocytes) Negative Nitrite (test code = Nitrite) negative Urobilinogen (test code = .2 Urobilinogen) Protein (test code = Protein) Negative pH (test code = pH) 7.0 Blood (test code = Blood) Negative Specific [place] (test code = 1.015 Specific [place]) Ketone (test code = Ketone) Negative Bilirubin (test code = Bilirubin) Negative Glucose (test code = Glucose) Negative Appearance (test code = Appearance) Clear Color (test code = Color) Yellow [facility]iUr[facility] macro (dipstick) panel - [id number] 09:17:51 Test Item Value Reference Range Interpretation Comments Leukocytes (test code = Leukocytes) Negative Nitrite (test code = Nitrite) negative Urobilinogen (test code = .2 Urobilinogen) Protein (test code = Protein) Negative pH (test code = pH) 7.0 Blood (test code = Blood) Negative Specific [place] (test code = 1.015 Specific [place]) Ketone (test code = Ketone) Negative Bilirubin (test code = Bilirubin) Negative Glucose (test code = Glucose) Negative Appearance (test code = Appearance) Clear Color (test code = Color) Yellow [facility] test, [id number] 09:13:36 Test Item Value Reference Range Interpretation Comments Test (test code = positive Test) [facility], [id number] 09:13:36 Test Item Value Reference Range Interpretation Comments Test (test code = positive Test) [facility]iBacteria identified in Urine by [id number] 08:28:00 Test Item Value Reference Range Interpretation Comments Bacteria identified in scant skin yolanda Urine by Culture (test present. pathogen not code = 630-4) present at 2 days. [facility] Auto Differential panel - [id number] 08:28:00 Test Item Value Reference Range Interpretation Comments white blood count (test code = 8.8 K/uL 4.0-11.5 white blood count) red blood count (test code = red 3.73 M/uL 3.80-5.20 L blood count) hemoglobin (test code = 11.2 g/dL 10.5-15.7 hemoglobin) hematocrit (test code = 35.3 % 34.0-50.0 hematocrit) MCV [Entitic volume] (test code = 94.6 fL 86.0-100.0 78381-0) mean corpuscular hemoglobin (test 30.0 pg 26.2-33.4 code = mean corpuscular hemoglobin) mean corpuscular HGB conc (test 31.7 g/dL 30.0-34.0 code = mean corpuscular HGB conc) red cell distribution width (test 13.2 % 12.0-15.5 code = red cell distribution width) platelet count (test code = 246 K/uL 165-450 platelet count) mean platelet volume (test code = 10.8 fL 9.4-12.6 mean platelet volume) Segmented neutrophils/100 62.2 % 44.4-80.1 leukocytes in Blood (test code = 50296-4) Immature granulocytes [#/volume] 0.06 K/uL 0.00-0.03 H in Blood (test code = 19863-5) lymphocyte% (test code = 28.9 % 10.0-50.0 lymphocyte%) mono % (test code = mono %) 7.0 % 3.6-12.0 eos % (test code = eos %) 0.9 % 0.0-5.4 Basophils/100 leukocytes in 0.3 % 0.1-1.2 Specimen (test code = 91318-1) Band form neutrophils [#/volume] 5.47 K/uL 1.56-6.13 in Blood (test code = 51767-6) Lymphocytes [#/volume] in Specimen 2.55 K/uL 1.18-3.74 by Automated count (test code = 56893-4) mono # (test code = mono #) 0.62 K/uL 0.24-0.86 eos # (test code = eos #) 0.08 K/uL 0.04-0.36 basophil # (test code = basophil 0.03 K/uL 0.01-0.08 #) NRBC% (test code = NRBC%) 0 /100 WBC 0-0.2 NRBC# (test code = NRBC#) 0 K/uL [facility]iABO and Rh group [Type] in [id number] 08:28:00 Test Item Value Reference Range Interpretation Comments Rh [Type] in Blood (test code = 4+ 38514-9) ABO and Rh group panel - Blood O positive (test code = 46186-3) [facility] antibody screen [Presence] in Serum or Plasma 2021-12-12 08:28:00 Test Item Value Reference Range Interpretation Comments Blood group antibody screen negative [Presence] in Serum or Plasma (test code = 890-4) [facility]iDifferential panel, method unspecified - [id number] 00:00:00NeutrophilsBandLymphocyteAtypical LymphMonocyteEosinophilBasophilMetamyelocyteMyelocytePromyelocyteBlastsNucleated Red Blood CellAbs Neutrophil Count (Man)Abs Lymph Count (Man)Abs Monocyte Count (Man)Abs Eosinophil Count (Man)Abs Basophil Count (Man)Platelet EstimatePlatelet MorphologyOceans [facility]al Hospital BiloxiHemoglobin A1c [Mass/volume] in [id number] 00:00:00 Test Item Value Reference Range Interpretation Comments Hemoglobin A1c [Mass/volume] in Blood 4.8 % 4.0-6.0 (test code = 26428-9) [facility]iThyrotropin [Units/volume] in Serum or [id number] 00:00:00 Test Item Value Reference Range Interpretation Comments Thyrotropin [Units/volume] in 2.46 uIU/mL 0.36-3.74 Serum or Plasma (test code = 3016-3) [facility]iHIV 1+2 Ab [Presence] in [id number] 00:00:00HIV P24 AgHIV-1/2 AbOceans [facility] BiloxiHepatitis B virus surface Ag [Presence] in [id number] 00:00:00 Test Item Value Reference Range Interpretation Comments .hepatitis B surface antigen (test negative negative code = .hepatitis B surface antigen) [facility]iReagin Ab [Presence] in Serum by [id number] 00:00:00 Test Item Value Reference Range Interpretation Comments Reagin Ab [Presence] in Serum by nonreactive nonreactive RPR (test code = 18038-9) [facility]iUrinalysis macro (dipstick) panel - [id number] 14:14:04 Test Item Value Reference Range Interpretation Comments Leukocytes (test code = Leukocytes) Small Nitrite (test code = Nitrite) negative Urobilinogen (test code = .2 Urobilinogen) Protein (test code = Protein) Negative pH (test code = pH) 7.0 Blood (test code = Blood) Negative Specific [place] (test code = 1.020 Specific [place]) Ketone (test code = Ketone) Negative Bilirubin (test code = Bilirubin) Negative Glucose (test code = Glucose) Negative Appearance (test code = Appearance) Clear Color (test code = Color) Yellow [facility]iUrinalysis macro (dipstick) panel - [id number] 14:02:17 Test Item Value Reference Range Interpretation Comments Leukocytes (test code = Leukocytes) Trace Nitrite (test code = Nitrite) negative Urobilinogen (test code = .2 Urobilinogen) Protein (test code = Protein) Negative pH (test code = pH) 7.0 Blood (test code = Blood) Negative Specific [place] (test code = 1.020 Specific [place]) Ketone (test code = Ketone) Negative Bilirubin (test code = Bilirubin) Negative Glucose (test code = Glucose) Negative Appearance (test code = Appearance) Clear Color (test code = Color) Yellow [facility]iUrinalysis macro (dipstick) panel - [id number] 14:02:17 Test Item Value Reference Range Interpretation Comments Leukocytes (test code = Leukocytes) Trace Nitrite (test code = Nitrite) negative Urobilinogen (test code = .2 Urobilinogen) Protein (test code = Protein) Negative pH (test code = pH) 7.0 Blood (test code = Blood) Negative Specific [place] (test code = 1.020 Specific [place]) Ketone (test code = Ketone) Negative Bilirubin (test code = Bilirubin) Negative Glucose (test code = Glucose) Negative Appearance (test code = Appearance) Clear Color (test code = Color) Yellow [facility]iCB W Auto Differential panel - [id number] 03:02:00 Test Item Value Reference Range Interpretation Comments white blood count (test code = 14.3 K/uL 4.0-11.5 H white blood count) red blood count (test code = red 4.13 M/uL 3.80-5.20 blood count) Hemoglobin [Mass/volume] in Blood 12.2 g/dL 10.5-15.7 (test code = 718-7) hematocrit (test code = hematocrit) 37.7 % 34.0-50.0 Erythrocyte mean corpuscular volume 91.3 fL 78-98 [Entitic volume] (test code = 30808-9) Erythrocyte mean corpuscular 29.6 pg 26.2-33.4 hemoglobin [Entitic mass] (test code = 02161-2) mean corpuscular HGB conc (test 32.4 g/dL 31.5-36.2 code = mean corpuscular HGB conc) red cell distribution width (test 13.3 % 11.5-15.5 code = red cell distribution width) Platelets [#/volume] in Blood (test 185 K/uL 137-338 code = 81690-8) Platelet mean volume [Entitic 9.1 fL 8.4-11.8 volume] in Blood (test code = 40137-7) Neutrophils.band form/100 75.0 % 44.4-80.1 leukocytes in Blood (test code = 93988-0) Lymphocytes/100 leukocytes in Body 16.3 % 10.0-50.0 fluid (test code = 30493-3) Monocytes/100 leukocytes in Blood 7.3 % 3.6-12.04 by Automated count (test code = 5905-5) Eosinophils/100 leukocytes in Blood 0.8 % 0.0-5.41 by Automated count (test code = 713-8) Basophils/100 leukocytes in Blood 0.6 % 0.0-0.79 by Automated count (test code = 706-2) [facility]iUrinalysis macro (dipstick) panel - [id number] 15:55:10 Test Item Value Reference Range Interpretation Comments Leukocytes (test code = Leukocytes) Moderate Nitrite (test code = Nitrite) negative Urobilinogen (test code = .2 Urobilinogen) Protein (test code = Protein) Negative pH (test code = pH) 6.0 Blood (test code = Blood) Small Specific [place] (test code = 1.020 Specific [place]) Ketone (test code = Ketone) Negative Bilirubin (test code = Bilirubin) Negative Glucose (test code = Glucose) Negative Appearance (test code = Appearance) Clear Color (test code = Color) Yellow [facility]iUrinalysis macro (dipstick) panel - [id number] 15:55:10 Test Item Value Reference Range Interpretation Comments Leukocytes (test code = Leukocytes) Moderate Nitrite (test code = Nitrite) negative Urobilinogen (test code = .2 Urobilinogen) Protein (test code = Protein) Negative pH (test code = pH) 6.0 Blood (test code = Blood) Small Specific [place] (test code = 1.020 Specific [place]) Ketone (test code = Ketone) Negative Bilirubin (test code = Bilirubin) Negative Glucose (test code = Glucose) Negative Appearance (test code = Appearance) Clear Color (test code = Color) Yellow [facility]iFetal Biophysical profile panel [id number] 15:37:23 Test Item Value Reference Range Interpretation Comments Amniotic Fluid Index (test code = 2 (14.7) Amniotic Fluid Index) Tone (test code = Tone) 2 Breathing (test code = 2 Breathing) Movement (test code = 2 Movement) Non-Stress Test (test code = 2 Non-Stress Test) [facility] Biophysical profile panel [id number] 15:37:23 Test Item Value Reference Range Interpretation Comments Amniotic Fluid Index (test code = 2 (14.7) Amniotic Fluid Index) Tone (test code = Tone) 2 Breathing (test code = 2 Breathing) Movement (test code = 2 Movement) Non-Stress Test (test code = 2 Non-Stress Test) [facility] Auto Differential panel - [id number] 10:58:00 Test Item Value Reference Range Interpretation Comments white blood count (test code = 11.6 K/uL 4.0-11.5 H white blood count) red blood count (test code = red 4.18 M/uL 3.80-5.20 blood count) Hemoglobin [Mass/volume] in Blood 12.1 g/dL 10.5-15.7 (test code = 718-7) hematocrit (test code = hematocrit) 37.4 % 34.0-50.0 Erythrocyte mean corpuscular volume 89.6 fL 78-98 [Entitic volume] (test code = 13407-4) Erythrocyte mean corpuscular 29.0 pg 26.2-33.4 hemoglobin [Entitic mass] (test code = 65414-0) mean corpuscular HGB conc (test 32.4 g/dL 31.5-36.2 code = mean corpuscular HGB conc) red cell distribution width (test 13.1 % 11.5-15.5 code = red cell distribution width) Platelets [#/volume] in Blood (test 205 K/uL 137-338 code = 50137-7) Platelet mean volume [Entitic 9.1 fL 8.4-11.8 volume] in Blood (test code = 06914-3) Neutrophils.band form/100 73.2 % 44.4-80.1 leukocytes in Blood (test code = 15185-9) Lymphocytes/100 leukocytes in Body 18.8 % 10.0-50.0 fluid (test code = 59175-8) Monocytes/100 leukocytes in Blood 6.2 % 3.6-12.04 by Automated count (test code = 5905-5) Eosinophils/100 leukocytes in Blood 1.3 % 0.0-5.41 by Automated count (test code = 713-8) Basophils/100 leukocytes in Blood 0.5 % 0.0-0.79 by Automated count (test code = 706-2) [facility]iCom[facility] 2000 panel - Serum or Plasma 2018-11-02 10:58:00 Test Item Value Reference Range Interpretation Comments Glucose [Mass/volume] in Serum or 89 mg/dL 74-106 Plasma (test code = 2345-7) Urea nitrogen [Mass/volume] in 10 mg/dL 6-20 Serum or Plasma (test code = 3094-0) Osmolality of Serum or Plasma 274 280-300 L (test code = 2692-2) creatinine (test code = 0.5 mg/dL 0.50-0.90 creatinine) glomerular filtration rate (test >60.00 code = glomerular filtration rate) Urea nitrogen/Creatinine [Mass 20.0 12-20 Ratio] in Serum or Plasma (test code = 3097-3) sodium level (test code = sodium 138 mmol/L 135-145 level) potassium level (test code = 3.6 mmol/L 3.5-5.2 potassium level) chloride level (test code = 104 mmol/L 98-108 chloride level) CO2 (test code = CO2) 19 mmol/L 21-32 L anion gap (test code = anion gap) 18.6 mEq/L 12-20 calcium level (test code = calcium 8.8 mg/dL 8.6-10.0 level) total protein (test code = total 6.6 g/dL 6.6-8.7 protein) albumin (test code = albumin) 3.4 g/dL 3.5-5.2 L globulin (test code = globulin) 3.2 gm/dL A/G ratio (test code = A/G ratio) 1.1 >1.0 bilirubin,total (test code = <0.3 0.0-1.2 bilirubin,total) AST/SGOT (test code = AST/SGOT) 19 U/L 15-32 Alanine aminotransferase 11 U/L 0-33 [Enzymatic activity/volume] in Serum or Plasma (test code = 1742-6) Alkaline phosphatase [Enzymatic 294 U/L 35-105 H activity/volume] in Serum or Plasma (test code = 6768-6) [facility] GroupUrate [Mass/volume] in [id number] 10:58:00 Test Item Value Reference Range Interpretation Comments uric acid (test code = uric acid) 3.9 mg/dL 2.4-5.7 [facility]iD-[facility]actate [Moles/volume] in Serum or [id number] 10:58:00 Test Item Value Reference Range Interpretation Comments LDH (test code = LDH) 168 U/L 135-214 [facility]iReagin Ab [Presence] in Serum by [id number] 10:58:00 Test Item Value Reference Range Interpretation Comments Reagin Ab [Presence] in Serum by nonreactive nonreactive RPR (test code = 71323-7) [facility]iHepatitis B virus surface Ag [Presence] in Serum 2018-11-02 10:58:00 Test Item Value Reference Range Interpretation Comments .hepatitis B surface antigen (test negative negative code = .hepatitis B surface antigen) [facility]jvpuCvyom-9-Zylwqgxecbyst.placental [Presence] in Vaginal [id number] 09:05:00 Test Item Value Reference Range Interpretation Comments Myeng-2-Dqcmyacnqazsm.placental negative neg [Presence] in Vaginal fluid (test code = 52352-8) [facility] complete panel - [id number] 01:30:00 Test Item Value Reference Range Interpretation Comments Color of Urine by Auto (test light yellow code = 70111-1) Appearance of Urine (test code = SL cloudy clear A 5767-9) Glucose [Presence] in Urine by negative negative Automated test strip (test code = 82374-6) Bilirubin.total [Mass/volume] in negative negative Urine (test code = 1978-6) Ketones [Mass/volume] in Urine negative negative by Automated test strip (test code = 02149-5) Specific gravity of Urine by 1.013 1.003-1.030 Automated test strip (test code = 27464-4) blood urine (test code = blood negative negative urine) pH of Urine (test code = 2756-5) 6.000 5-9 protein urine (UA) (test code = negative negative protein urine (UA)) Urobilinogen [Presence] in Urine normal 0.2-1.0 (test code = 22118-8) Nitrite [Presence] in Urine by negative negative Test strip (test code = 5802-4) Leukocyte esterase [Presence] in =4 negative H Urine by Automated test strip (test code = 65273-3) Erythrocytes [#/volume] in Urine =1-5 0-5 by Automated count (test code = 798-9) Leukocytes [#/area] in Urine =30-49 0-5 H sediment by Automated count (test code = 75797-0) Epithelial cells [Presence] in =6-10 0-5 Urine sediment by Light microscopy (test code = 39825-8) Bacteria identified in Urine by moderate (2 none detect H Culture (test code = 630-4) Casts [#/area] in Urine sediment =2-5 none detect by Automated count (test code = 23399-8) urine culture added? (test code yes = urine culture added?) path casts,U (test code = path none seen none detect casts,U) [facility] by [id number] 01:30:00 Test Item Value Reference Range Interpretation Comments Bacteria identified in no growth after 2 Urine by Culture (test days code = 630-4) [facility] - [id number] 01:30:00 Test Item Value Reference Range Interpretation Comments Color of Urine by Auto (test light yellow code = 41446-4) Appearance of Urine (test code = SL cloudy clear A 5767-9) Glucose [Presence] in Urine by negative negative Automated test strip (test code = 63740-9) Bilirubin.total [Mass/volume] in negative negative Urine (test code = 1978-6) Ketones [Mass/volume] in Urine negative negative by Automated test strip (test code = 36490-0) Specific gravity of Urine by 1.013 1.003-1.030 Automated test strip (test code = 29002-4) blood urine (test code = blood negative negative urine) pH of Urine (test code = 2756-5) 6.000 5-9 protein urine (UA) (test code = negative negative protein urine (UA)) Urobilinogen [Presence] in Urine normal 0.2-1.0 (test code = 77994-1) Nitrite [Presence] in Urine by negative negative Test strip (test code = 5802-4) Leukocyte esterase [Presence] in =4 negative H Urine by Automated test strip (test code = 94537-5) Erythrocytes [#/volume] in Urine =1-5 0-5 by Automated count (test code = 798-9) Leukocytes [#/area] in Urine =30-49 0-5 H sediment by Automated count (test code = 45458-0) Epithelial cells [Presence] in =6-10 0-5 Urine sediment by Light microscopy (test code = 65608-1) Bacteria identified in Urine by moderate (2 none detect H Culture (test code = 630-4) Casts [#/area] in Urine sediment =2-5 none detect by Automated count (test code = 52415-4) urine culture added? (test code yes = urine culture added?) path casts,U (test code = path none seen none detect casts,U) [facility] identified in Urine by [id number] 01:30:00 Test Item Value Reference Range Interpretation Comments Bacteria identified in no growth after 2 Urine by Culture (test days code = 630-4) [facility] macro (dipstick) panel - [id number] 15:42:44 Test Item Value Reference Range Interpretation Comments Leukocytes (test code = Leukocytes) Large Nitrite (test code = Nitrite) negative Urobilinogen (test code = .2 Urobilinogen) Protein (test code = Protein) Negative pH (test code = pH) 6.0 Blood (test code = Blood) Negative Specific Ambrose (test code = 1.015 Specific Ambrose) Ketone (test code = Ketone) Negative Bilirubin (test code = Bilirubin) Negative Glucose (test code = Glucose) Negative Appearance (test code = Appearance) Clear Color (test code = Color) Yellow [facility]inal[facility] macro (dipstick) panel - [id number] 15:42:44 Test Item Value Reference Range Interpretation Comments Leukocytes (test code = Leukocytes) Large Nitrite (test code = Nitrite) negative Urobilinogen (test code = .2 Urobilinogen) Protein (test code = Protein) Negative pH (test code = pH) 6.0 Blood (test code = Blood) Negative Specific Ambrose (test code = 1.015 Specific Ambrose) Ketone (test code = Ketone) Negative Bilirubin (test code = Bilirubin) Negative Glucose (test code = Glucose) Negative Appearance (test code = Appearance) Clear Color (test code = Color) Yellow [facility] macro (dipstick) panel - [id number] 15:42:44 Test Item Value Reference Range Interpretation Comments Leukocytes (test code = Leukocytes) Large Nitrite (test code = Nitrite) negative Urobilinogen (test code = .2 Urobilinogen) Protein (test code = Protein) Negative pH (test code = pH) 6.0 Blood (test code = Blood) Negative Specific Ambrose (test code = 1.015 Specific Ambrose) Ketone (test code = Ketone) Negative Bilirubin (test code = Bilirubin) Negative Glucose (test code = Glucose) Negative Appearance (test code = Appearance) Clear Color (test code = Color) Yellow [facility] Auto Differential panel - [id number] 02:30:00 Test Item Value Reference Range Interpretation Comments white blood count (test code = 8.2 K/uL 4.0-11.5 white blood count) red blood count (test code = red 3.93 M/uL 3.80-5.20 blood count) Hemoglobin [Mass/volume] in Blood 11.6 g/dL 10.5-15.7 (test code = 718-7) hematocrit (test code = hematocrit) 36.4 % 34.0-50.0 Erythrocyte mean corpuscular volume 92.7 fL 78-98 [Entitic volume] (test code = 52567-6) Erythrocyte mean corpuscular 29.5 pg 26.2-33.4 hemoglobin [Entitic mass] (test code = 00387-7) mean corpuscular HGB conc (test 31.8 g/dL 31.5-36.2 code = mean corpuscular HGB conc) red cell distribution width (test 13.2 % 11.5-15.5 code = red cell distribution width) Platelets [#/volume] in Blood (test 216 K/uL 137-338 code = 01240-9) Platelet mean volume [Entitic 10.0 fL 8.4-11.8 volume] in Blood (test code = 26047-9) Neutrophils.band form/100 62.7 % 44.4-80.1 leukocytes in Blood (test code = 68590-7) Lymphocytes/100 leukocytes in Body 27.7 % 10.0-50.0 fluid (test code = 14778-6) Monocytes/100 leukocytes in Blood 7.4 % 3.6-12.04 by Automated count (test code = 5905-5) Eosinophils/100 leukocytes in Blood 1.3 % 0.0-5.41 by Automated count (test code = 713-8) Basophils/100 leukocytes in Blood 0.8 % 0.0-0.79 H by Automated count (test code = 706-2) [facility]Com[facility] 2000 [facility] - Serum or Plasma 2018-10-25 02:30:00 Test Item Value Reference Range Interpretation Comments glucose (test code = glucose) 96 mg/dL 74-106 Urea nitrogen [Mass/volume] in 14 mg/dL 6-20 Serum or Plasma (test code = 3094-0) Osmolality of Serum or Plasma 272 280-300 L (test code = 2692-2) creatinine (test code = 0.5 mg/dL 0.50-0.90 creatinine) glomerular filtration rate (test >60.00 code = glomerular filtration rate) Urea nitrogen/Creatinine [Mass 28.0 12-20 H Ratio] in Serum or Plasma (test code = 3097-3) sodium level (test code = sodium 136 mmol/L 135-145 level) Potassium [Moles/volume] in Body 3.8 mmol/L 3.5-5.2 fluid (test code = 2821-7) chloride level (test code = 100 mmol/L 98-108 chloride level) CO2 (test code = CO2) 25 mmol/L 21-32 anion gap (test code = anion gap) 14.8 mEq/L 12-20 calcium level (test code = calcium 9.2 mg/dL 8.6-10.0 level) total protein (test code = total 6.8 g/dL 6.6-8.7 protein) albumin (test code = albumin) 3.5 g/dL 3.5-5.2 globulin (test code = globulin) 3.3 gm/dL A/G ratio (test code = A/G ratio) 1.1 >1.0 bilirubin,total (test code = <0.3 0.0-1.2 bilirubin,total) AST/SGOT (test code = AST/SGOT) 23 U/L 15-32 Alanine aminotransferase 12 U/L 0-33 [Enzymatic activity/volume] in Serum or Plasma (test code = 1742-6) Alkaline phosphatase [Enzymatic 243 U/L 35-105 H activity/volume] in Serum or Plasma (test code = 6768-6) [facility]iU[facility] [Mass/volume] in [id number] 02:30:00 Test Item Value Reference Range Interpretation Comments uric acid (test code = uric acid) 3.7 mg/dL 2.4-5.7 [facility] Auto Differential panel - [id number] 02:30:00 Test Item Value Reference Range Interpretation Comments white blood count (test code = 8.2 K/uL 4.0-11.5 white blood count) red blood count (test code = red 3.93 M/uL 3.80-5.20 blood count) Hemoglobin [Mass/volume] in Blood 11.6 g/dL 10.5-15.7 (test code = 718-7) hematocrit (test code = hematocrit) 36.4 % 34.0-50.0 Erythrocyte mean corpuscular volume 92.7 fL 78-98 [Entitic volume] (test code = 17546-6) Erythrocyte mean corpuscular 29.5 pg 26.2-33.4 hemoglobin [Entitic mass] (test code = 70998-1) mean corpuscular HGB conc (test 31.8 g/dL 31.5-36.2 code = mean corpuscular HGB conc) red cell distribution width (test 13.2 % 11.5-15.5 code = red cell distribution width) Platelets [#/volume] in Blood (test 216 K/uL 137-338 code = 50784-9) Platelet mean volume [Entitic 10.0 fL 8.4-11.8 volume] in Blood (test code = 43201-3) Neutrophils.band form/100 62.7 % 44.4-80.1 leukocytes in Blood (test code = 93732-1) Lymphocytes/100 leukocytes in Body 27.7 % 10.0-50.0 fluid (test code = 17455-5) Monocytes/100 leukocytes in Blood 7.4 % 3.6-12.04 by Automated count (test code = 5905-5) Eosinophils/100 leukocytes in Blood 1.3 % 0.0-5.41 by Automated count (test code = 713-8) Basophils/100 leukocytes in Blood 0.8 % 0.0-0.79 H by Automated count (test code = 706-2) [facility] 2000 [facility] - Serum or Plasma 2018-10-25 02:30:00 Test Item Value Reference Range Interpretation Comments glucose (test code = glucose) 96 mg/dL 74-106 Urea nitrogen [Mass/volume] in 14 mg/dL 6-20 Serum or Plasma (test code = 3094-0) Osmolality of Serum or Plasma 272 280-300 L (test code = 2692-2) creatinine (test code = 0.5 mg/dL 0.50-0.90 creatinine) glomerular filtration rate (test >60.00 code = glomerular filtration rate) Urea nitrogen/Creatinine [Mass 28.0 12-20 H Ratio] in Serum or Plasma (test code = 3097-3) sodium level (test code = sodium 136 mmol/L 135-145 level) Potassium [Moles/volume] in Body 3.8 mmol/L 3.5-5.2 fluid (test code = 2821-7) chloride level (test code = 100 mmol/L 98-108 chloride level) CO2 (test code = CO2) 25 mmol/L 21-32 anion gap (test code = anion gap) 14.8 mEq/L 12-20 calcium level (test code = calcium 9.2 mg/dL 8.6-10.0 level) total protein (test code = total 6.8 g/dL 6.6-8.7 protein) albumin (test code = albumin) 3.5 g/dL 3.5-5.2 globulin (test code = globulin) 3.3 gm/dL A/G ratio (test code = A/G ratio) 1.1 >1.0 bilirubin,total (test code = <0.3 0.0-1.2 bilirubin,total) AST/SGOT (test code = AST/SGOT) 23 U/L 15-32 Alanine aminotransferase 12 U/L 0-33 [Enzymatic activity/volume] in Serum or Plasma (test code = 1742-6) Alkaline phosphatase [Enzymatic 243 U/L 35-105 H activity/volume] in Serum or Plasma (test code = 6768-6) [facility] [Mass/volume] in [id number] 02:30:00 Test Item Value Reference Range Interpretation Comments uric acid (test code = uric acid) 3.7 mg/dL 2.4-5.7 [facility]iUrinal[facility] macro (dipstick) panel - [id number] 15:57:24 Test Item Value Reference Range Interpretation Comments Leukocytes (test code = Leukocytes) Small Nitrite (test code = Nitrite) negative Urobilinogen (test code = .2 Urobilinogen) Protein (test code = Protein) Negative pH (test code = pH) 7.0 Blood (test code = Blood) Negative Specific Ambrose (test code = 1.015 Specific Ambrose) Ketone (test code = Ketone) Negative Bilirubin (test code = Bilirubin) Negative Glucose (test code = Glucose) Negative Appearance (test code = Appearance) Clear Color (test code = Color) Yellow [facility] macro (dipstick) panel - [id number] 15:57:24 Test Item Value Reference Range Interpretation Comments Leukocytes (test code = Leukocytes) Small Nitrite (test code = Nitrite) negative Urobilinogen (test code = .2 Urobilinogen) Protein (test code = Protein) Negative pH (test code = pH) 7.0 Blood (test code = Blood) Negative Specific Ambrose (test code = 1.015 Specific Ambrose) Ketone (test code = Ketone) Negative Bilirubin (test code = Bilirubin) Negative Glucose (test code = Glucose) Negative Appearance (test code = Appearance) Clear Color (test code = Color) Yellow [facility] macro (dipstick) panel - [id number] 15:57:24 Test Item Value Reference Range Interpretation Comments Leukocytes (test code = Leukocytes) Small Nitrite (test code = Nitrite) negative Urobilinogen (test code = .2 Urobilinogen) Protein (test code = Protein) Negative pH (test code = pH) 7.0 Blood (test code = Blood) Negative Specific Ambrose (test code = 1.015 Specific Ambrose) Ketone (test code = Ketone) Negative Bilirubin (test code = Bilirubin) Negative Glucose (test code = Glucose) Negative Appearance (test code = Appearance) Clear Color (test code = Color) Yellow [facility] GroupStreptococcus agalactiae [Presence] in Unspecified specimen by Organism specific [id number] 02:56:00ResultsMethod[facility] GroupStreptococcus agalactiae [Presence] in Unspecified specimen by Organism specific [id number] 02:56:00ResultsMaAsc[facility] GroupUrinalysis macro (dipstick) panel - [id number] 14:48:08 Test Item Value Reference Range Interpretation Comments Leukocytes (test code = Leukocytes) Small Nitrite (test code = Nitrite) negative Urobilinogen (test code = .2 Urobilinogen) Protein (test code = Protein) Negative pH (test code = pH) 7.5 Blood (test code = Blood) Negative Specific Ambrose (test code = 1.015 Specific Ambrose) Ketone (test code = Ketone) Negative Bilirubin (test code = Bilirubin) Negative Glucose (test code = Glucose) Negative Appearance (test code = Appearance) Clear Color (test code = Color) Yellow [facility] macro (dipstick) panel - [id number] 14:48:08 Test Item Value Reference Range Interpretation Comments Leukocytes (test code = Leukocytes) Small Nitrite (test code = Nitrite) negative Urobilinogen (test code = .2 Urobilinogen) Protein (test code = Protein) Negative pH (test code = pH) 7.5 Blood (test code = Blood) Negative Specific Ambrose (test code = 1.015 Specific Ambrose) Ketone (test code = Ketone) Negative Bilirubin (test code = Bilirubin) Negative Glucose (test code = Glucose) Negative Appearance (test code = Appearance) Clear Color (test code = Color) [facility] - [id number] 01:15:00 Test Item Value Reference Range Interpretation Comments white blood count (test code = 8.9 K/uL 4.0-11.5 white blood count) red blood count (test code = red 3.62 M/uL 3.80-5.20 L blood count) Hemoglobin [Mass/volume] in Blood 11.1 g/dL 10.5-15.7 (test code = 718-7) hematocrit (test code = hematocrit) 34.1 % 34.0-50.0 Erythrocyte mean corpuscular volume 94.3 fL 78-98 [Entitic volume] (test code = 06606-5) Erythrocyte mean corpuscular 30.8 pg 26.2-33.4 hemoglobin [Entitic mass] (test code = 10777-7) mean corpuscular HGB conc (test 32.7 g/dL 31.5-36.2 code = mean corpuscular HGB conc) red cell distribution width (test 12.5 % 11.5-15.5 code = red cell distribution width) Platelets [#/volume] in Blood (test 244 K/uL 137-338 code = 86279-3) Platelet mean volume [Entitic 8.5 fL 8.4-11.8 volume] in Blood (test code = 02608-6) Neutrophils.band form/100 65.0 % 44.4-80.1 leukocytes in Blood (test code = 71449-5) Lymphocytes/100 leukocytes in Body 26.1 % 10.0-50.0 fluid (test code = 30368-6) Monocytes/100 leukocytes in Blood 7.0 % 3.6-12.04 by Automated count (test code = 5905-5) Eosinophils/100 leukocytes in Blood 1.4 % 0.0-5.41 by Automated count (test code = 713-8) Basophils/100 leukocytes in Blood 0.6 % 0.0-0.79 by Automated count (test code = 706-2) [facility] screen [Presence] in Serum or Plasma 2018-09-13 01:15:00 Test Item Value Reference Range Interpretation Comments Blood group antibody screen negative [Presence] in Serum or Plasma (test code = 890-4) [facility]iHIV [facility]+2 Ab [Presence] in [id number] 01:15:00HIV P24 AgHIV-1/2 AbMaPatient[facility] CountyReagin Ab [Presence] in Serum by RPR 2018-09-13 01:15:00 Test Item Value Reference Range Interpretation Comments Reagin Ab [Presence] in Serum by nonreactive nonreactive RPR (test code = 31157-5) [facility] Auto Differential panel - [id number] 01:15:00 Test Item Value Reference Range Interpretation Comments white blood count (test code = 8.9 K/uL 4.0-11.5 white blood count) red blood count (test code = red 3.62 M/uL 3.80-5.20 L blood count) Hemoglobin [Mass/volume] in Blood 11.1 g/dL 10.5-15.7 (test code = 718-7) hematocrit (test code = hematocrit) 34.1 % 34.0-50.0 Erythrocyte mean corpuscular volume 94.3 fL 78-98 [Entitic volume] (test code = 78425-5) Erythrocyte mean corpuscular 30.8 pg 26.2-33.4 hemoglobin [Entitic mass] (test code = 51232-3) mean corpuscular HGB conc (test 32.7 g/dL 31.5-36.2 code = mean corpuscular HGB conc) red cell distribution width (test 12.5 % 11.5-15.5 code = red cell distribution width) Platelets [#/volume] in Blood (test 244 K/uL 137-338 code = 52089-5) Platelet mean volume [Entitic 8.5 fL 8.4-11.8 volume] in Blood (test code = 57989-1) Neutrophils.band form/100 65.0 % 44.4-80.1 leukocytes in Blood (test code = 92521-9) Lymphocytes/100 leukocytes in Body 26.1 % 10.0-50.0 fluid (test code = 58154-9) Monocytes/100 leukocytes in Blood 7.0 % 3.6-12.04 by Automated count (test code = 5905-5) Eosinophils/100 leukocytes in Blood 1.4 % 0.0-5.41 by Automated count (test code = 713-8) Basophils/100 leukocytes in Blood 0.6 % 0.0-0.79 by Automated count (test code = 706-2) [facility] [Presence] in Serum or Plasma 2018-09-13 01:15:00 Test Item Value Reference Range Interpretation Comments Blood group antibody screen negative [Presence] in Serum or Plasma (test code = 890-4) [facility]HIV [facility] Ab [Presence] in [id number] 01:15:00HIV P24 AgHIV-1/2 AbMataOCH [facility] CenterReagin Ab [Presence] in Serum by RPR 2018-09-13 01:15:00 Test Item Value Reference Range Interpretation Comments Reagin Ab [Presence] in Serum by nonreactive nonreactive RPR (test code = 95626-0) [facility]
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
[2022-09-12 10:33] VITALS: BP 133/79; TEMP 98; O2SAT 100
== END 2022-09-12 10:25 | disposition home or self-care (01) ==
LOC: ER 09:58
DX: M54.50 Low back pain, unspecified (principal); V49.40XA Driver injured in collision with unspecified motor vehicles in traffic accident, initial encounter; Z88.6 Allergy status to analgesic agent; Z88.8 Allergy status to other drugs, medicaments and biological substances
CPT/HCPCS: 99281

== ENCOUNTER 2024-03-08 09:24 | Emergency (ER) | payer SELFPAY ==
--- OUTSIDE RECORDS SUMMARY | 2024-03-08 09:29 | XMS REPORT | Continuity of Care Document ---
Author Name Unknown Address [address] [facility]. [address] [place] [address] [facility] Address [address] [facility]. [address] [place] [address] Care Team Providers Care Cushion Cover Inspector Name Role Phone G_Pappas Attending Clinician Unavailable G_Pappas Admitting Clinician Unavailable Payers Payer Name Policy Type Policy Number Effective Date Expirati on Date Source [facility] (MEDICAID REPLACEMENT - HMO) [id number] Problems Condition Name Condition Details Condition Category Status Onset Date Resolution Date Last Treatment Date Treating Clinician Comments Source History of pre-eclamp martir History of Pre-eclamp martir Problem Active 12-12 00:00: 00 [facility] Generalize d anxiety disorder Generalize d Anxiety Disorder Problem Active 2019-07 0- 00:00: 00 [facility] Late entry into care Late Entry into Care Problem Active 18 00:00: 00 [facility] Small for gestationa l age fetus Small for Gestationa l Age Fetus Problem Active [facility] Allergies, Adverse Reactions, Alerts Allergy Name Allergy Type Status Severity Reaction(s) Onset Date Inactive Date Treating Clinician Comments Source Benadryl Allergy to substanc e Active [facility] Ibuprofe n Allergy to substanc e Active [facility] Social History Smoking Status Start Date Stop Date Source Former Smoker [facility] Medications Ordered Medication Name Filled Medication Name Start Date Stop Date Current Medication? Ordering Clinician Indication Dosage Frequency Signature (SIG) Comments Components Source Vitafol Ultra 29 mg iron-1 mg-200 mg capsule TAKE ONE (1) CAPSULE(S) BY MOUTH ONCE A DAY. Vitafol Ultra 29 mg iron-1 mg-200 mg capsule TAKE ONE (1) CAPSULE(S) BY MOUTH ONCE A DAY. No Vitafol Ultra 29 mg iron-1 mg-200 mg capsule TAKE ONE (1) CAPSULE(S) BY MOUTH ONCE A DAY. [facility] Vital Signs Vital Name Observation Time Observation Value Comments S ource BP Diastolic 2022-03-25 00:00:00 92 mm[Hg] [facility] Height 2022-03-25 00:00:00 65 [in_i] [facility] BMI (Body Mass Index) 2022-03-25 00:00:00 25.1 kg/m2 [facility] BP Systolic 2022-03-25 00:00:00 140 mm[Hg] [facility] Body Weight 2022-03-25 00:00:00 150.8 [lb_av] [facility] BP Diastolic 2022-02-21 00:00:00 83 mm[Hg] [facility] Height 2022-02-21 00:00:00 65 [in_i] [facility] BMI (Body Mass Index) 2022-02-21 00:00:00 28.3 kg/m2 [facility] BP Systolic 2022-02-21 00:00:00 118 mm[Hg] [facility] Body Weight 2022-02-21 00:00:00 170.2 [lb_av] [facility] BP Diastolic 2022-02-14 00:00:00 80 mm[Hg] [facility] Height 2022-02-14 00:00:00 65 [in_i] [facility] BMI (Body Mass Index) 2022-02-14 00:00:00 28.3 kg/m2 [facility] BP Systolic 2022-02-14 00:00:00 143 mm[Hg] [facility] Body Weight 2022-02-14 00:00:00 169.9 [lb_av] [facility] BP Diastolic 2022-02-06 00:00:00 84 mm[Hg] [facility] Height 2022-02-06 00:00:00 65 [in_i] [facility] BMI (Body Mass Index) 2022-02-06 00:00:00 28.2 kg/m2 [facility] BP Systolic 2022-02-06 00:00:00 126 mm[Hg] [facility] Body Weight 2022-02-06 00:00:00 169.6 [lb_av] [facility] BP Diastolic 2022-01-28 00:00:00 79 mm[Hg] [facility] Height 2022-01-28 00:00:00 65 [in_i] [facility] BMI (Body Mass Index) 2022-01-28 00:00:00 28 kg/m2 [facility] BP Systolic 2022-01-28 00:00:00 128 mm[Hg] [facility] Body Weight 2022-01-28 00:00:00 168.3 [lb_av] [facility] BP Diastolic 2022-01-21 00:00:00 80 mm[Hg] [facility] Height 2022-01-21 00:00:00 65 [in_i] [facility] BMI (Body Mass Index) 2022-01-21 00:00:00 27.7 kg/m2 [facility] BP Systolic 2022-01-21 00:00:00 119 mm[Hg] [facility] Body Weight 2022-01-21 00:00:00 166.7 [lb_av] [facility] BP Diastolic 2022-01-14 00:00:00 75 mm[Hg] [facility] Height 2022-01-14 00:00:00 65 [in_i] [facility] BMI (Body Mass Index) 2022-01-14 00:00:00 27.7 kg/m2 [facility] BP Systolic 2022-01-14 00:00:00 142 mm[Hg] [facility] Body Weight 2022-01-14 00:00:00 166.4 [lb_av] [facility] BP Diastolic 2021-12-30 00:00:00 76 mm[Hg] [facility] Height 2021-12-30 00:00:00 65 [in_i] [facility] BMI (Body Mass Index) 2021-12-30 00:00:00 26.7 kg/m2 [facility] BP Systolic 2021-12-30 00:00:00 126 mm[Hg] [facility] Body Weight 2021-12-30 00:00:00 160.7 [lb_av] [facility] BP Diastolic 2021-12-12 00:00:00 85 mm[Hg] [facility] Height 2021-12-12 00:00:00 65 [in_i] [facility] BMI (Body Mass Index) 2021-12-12 00:00:00 26.3 kg/m2 [facility] BP Systolic 2021-12-12 00:00:00 138 mm[Hg] [facility] Body Weight 2021-12-12 00:00:00 158 [lb_av] [facility] BP Systolic 2020-09-07 00:00:00 145 mm[Hg] [facility] Body Weight 2020-09-07 00:00:00 154.1 [lb_av] [facility] BP Diastolic 2020-09-07 00:00:00 84 mm[Hg] [facility] Height 2020-09-07 00:00:00 65 [in_i] [facility] BMI (Body Mass Index) 2020-09-07 00:00:00 25.6 kg/m2 [facility] BP Diastolic 2020-05-15 00:00:00 88 mm[Hg] [facility] Height 2020-05-15 00:00:00 65 [in_i] [facility] BP Systolic 2020-05-15 00:00:00 144 mm[Hg] [facility] BP Diastolic 2018-12-15 00:00:00 96 mm[Hg] [facility] Height 2018-12-15 00:00:00 65 [in_i] [facility] BMI (Body Mass Index) 2018-12-15 00:00:00 22.9 kg/m2 [facility] BP Systolic 2018-12-15 00:00:00 155 mm[Hg] [facility] Body Weight 2018-12-15 00:00:00 137.6 [lb_av] [facility] BP Diastolic 2018-11-24 00:00:00 93 mm[Hg] [facility] Height 2018-11-24 00:00:00 65 [in_i] [facility] BMI (Body Mass Index) 2018-11-24 00:00:00 23.7 kg/m2 [facility] BP Systolic 2018-11-24 00:00:00 148 mm[Hg] [facility] Body Weight 2018-11-24 00:00:00 142.4 [lb_av] [facility] BP Diastolic 2018-11-02 00:00:00 78 mm[Hg] [facility] Height 2018-11-02 00:00:00 65 [in_i] [facility] BMI (Body Mass Index) 2018-11-02 00:00:00 26.5 kg/m2 [facility] BP Systolic 2018-11-02 00:00:00 131 mm[Hg] [facility] Body Weight 2018-11-02 00:00:00 159 [lb_av] [facility] BP Diastolic 2018-10-25 00:00:00 90 mm[Hg] [facility] Height 2018-10-25 00:00:00 65 [in_i] [facility] BMI (Body Mass Index) 2018-10-25 00:00:00 26.8 kg/m2 [facility] BP Systolic 2018-10-25 00:00:00 141 mm[Hg] [facility] Body Weight 2018-10-25 00:00:00 161 [lb_av] [facility] BP Diastolic 2018-10-11 00:00:00 71 mm[Hg] [facility] Height 2018-10-11 00:00:00 65 [in_i] [facility] BMI (Body Mass Index) 2018-10-11 00:00:00 27 kg/m2 [facility] BP Systolic 2018-10-11 00:00:00 150 mm[Hg] [facility] Body Weight 2018-10-11 00:00:00 162 [lb_av] [facility] BP Diastolic 2018-09-16 00:00:00 78 mm[Hg] [facility] Height 2018-09-16 00:00:00 65 [in_i] [facility] BMI (Body Mass Index) 2018-09-16 00:00:00 25.8 kg/m2 [facility] BP Systolic 2018-09-16 00:00:00 136 mm[Hg] [facility] Body Weight 2018-09-16 00:00:00 155 [lb_av] [facility] BP Diastolic 2018-09-13 00:00:00 67 mm[Hg] [facility] Height 2018-09-13 00:00:00 65 [in_i] [facility] BMI (Body Mass Index) 2018-09-13 00:00:00 25.8 kg/m2 [facility] BP Systolic 2018-09-13 00:00:00 136 mm[Hg] [facility] Body Weight 2018-09-13 00:00:00 155 [lb_av] [facility] Procedures Procedure Date / Time Performed Performing Clinician Source US(FBP)W/0 NON STRESS TEST 2022-02-21 00:00:00 [facility] US(FBP)W/0 NON STRESS TEST 2022-02-14 00:00:00 [facility] US, obstetric, limited 2022-02-06 00:00:00 [facility] US(FBP)W/0 NON STRESS TEST 2022-02-06 00:00:00 [facility] US(FBP)W/0 NON STRESS TEST 2022-01-28 00:00:00 [facility] US(FBP)W/0 NON STRESS TEST 2022-01-21 00:00[facility] 2022-01-14 00:00[facility]00 [facility] US(FBP)W/0 NON STRESS TEST 2022-01-14 00:00:00 [facility] US, obstetric, limited 2021-12-30 00:00:00 [facility] US, obstetric, 2nd or 3rd trimester 2021-12-24 00:00:00 [facility] ULTRASOUND, UTERUS REAL TIME WITH IMAGE DOC, AND MATERNAL EVAL PLUS DETAILED ANATOMIC EXAMINATION, TRANSABDOMINAL APPROACH; SINGLE OR FIRST GESTATION 2021-12-12 00:00:00 [facility] US, obstetric, limited 2020-09-07 00:00:00 [facility] ULTRASOUND, UTERUS REAL TIME WITH IMAGE DOC, AND MATERNAL EVAL PLUS DETAILED ANATOMIC EXAMINATION, TRANSABDOMINAL APPROACH; SINGLE OR FIRST GESTATION 2020-05-15 00:00:00 [facility] US(FBP)W/0 NON STRESS TEST 2018-11-02 00:00:00 [facility] US, obstetric, limited 2018-10-25 00:00:00 [facility] US, obstetric, limited 2018-09-16 00:00:00 [facility] Encounters Start Date/Time End Date/Time Encounter Type Admission Type Attending Clinicians Care Facility Care Department Encounter ID Source 2022-03-25 00:00:00 2022-03-25 00:00:00 Carl Walker MD: [address], [place] [address] , Ph. [phone] G_Pappas [facility] [id number] [facility] 2022-02-21 00:00:00 2022-02-21 00:00:00 Claudio Silverio MD: [address], [place] [address] , Ph. [phone] [facility] [id number] 0729 [facility] 2022-02-19 00:00:00 2022-02-19 00:00:00 Outpatient G_Pappas [facility] [id number] 0727 [facility] 2022-02-14 00:00:00 2022-02-14 00:00:00 Claudio Silverio MD: [address] [place] [address] , Ph. [phone] G_Pappas [facility] 0722 [facility] 2022-02-06 00:00:00 2022-02-06 00:00:00 Claudio Silverio MD: [address] [address] , Ph. [phone] G_Pappas [facility] 0714 [facility] 2022-01-28 00:00:00 2022-01-28 00:00:00 Claudio Silverio MD: [address] [address] , Ph. [phone] G_Pappas [facility] [id number] 0705 [facility] 2022-01-21 00:00:00 2022-01-21 00:00:00 Claudio Silverio MD: [address] [address] , Ph. [phone] G_Pappas [facility] [id number] 0628 [facility] 2022-01-14 00:00:00 2022-01-14 00:00:00 Claudio Silverio MD: [address] [address] , Ph. [phone] G_Pappas [facility] [id number] 0621 [facility] 2021-12-30 00:00:00 2021-12-30 00:00:00 Claudio Silverio MD: [address] [facility], [place] [address] , Ph. [phone] G_Pappas [facility] [id number] [facility] 2021-12-27 11:52:00 2021-12-27 11:52:00 Outpatient G_Pappas [facility] [id number] [facility] 2021-12-12 00:00:00 2021-12-12 00:00:00 Montserrat Diaz [facility]: [address] [place] [address] , Ph. [phone] G_Pappas [facility] [id number] 0519 [facility] 2020-09-07 00:00:00 2020-09-07 00:00:00 Claudio Silverio MD: [address] [place] [address] , Ph. [phone] G_Pappas [facility] [id number] [facility] 2020-06-25 10:27:00 2020-06-25 10:27:00 Outpatient G_Pappas [facility] [id number] [facility] 2020-05-15 00:00:00 2020-05-15 00:00:00 Claudio Silverio MD: [address] [place] [address] , Ph. [phone] G_Pappas [facility] [id number] 1020 [facility] 2018-12-24 11:35:00 2018-12-24 11:35:00 Outpatient G_Pappas [facility] [id number] [id number] [facility] 2018-12-15 00:00:00 2018-12-15 00:00:00 ARA MerchantNP: [address], [place] [address] , Ph. [phone] [facility] [id number] 0522 [facility] 2018-11-24 00:00:00 2018-11-24 00:00:00 ARIANA Merchant: [address], [place] [address] , Ph. [phone] [facility] [id number] 0501 [facility] 2018-11-02 00:00:00 2018-11-02 00:00:00 Claudio Silverio MD: [address], [place] [address] , Ph. [phone] [facility] [id number] 0409 [facility] 2018-10-25 00:00:00 2018-10-25 00:00:00 Claudio Silverio MD: [address], [place] [address] , Ph. [phone] [facility] [id number] 0401 [facility] 2018-10-11 00:00:00 2018-10-11 00:00:00 ARIANA Merchant: [address], [place] [address] , Ph. [phone] [facility] [id number] 0318 [facility] 2018-09-16 00:00:00 2018-09-16 00:00:00 Claudio Silverio MD: [address], [place] [address] , Ph. [phone] [facility] [id number] 0221 [facility] 2018-09-13 00:00:00 2018-09-13 00:00:00 Claudio Silverio MD: [address], [place] [address] , Ph. [phone] [facility] [id number] 0218 [facility] Results Test Description Test Time Test Comments Results Result Co mments Source [facility], method unspecified - [id number] 11:10:00NeutrophilsBandLymphocyteAtypical LymphMonocyteEosinophilBasophilMetamyelocyteMyelocytePromyelocyteBlastsNucleated Red Blood CellAbs Neutrophil Count (Man)Abs Lymph Count (Man)Abs Monocyte Count (Man)Abs Eosinophil Count (Man)Abs Basophil Count (Man)Platelet EstimatePlatelet MorphologyPoikilocytosisMacrocytosisRouleauMerit Health [facility] RegionCBC W Auto Differential panel - [id number] 08:55:00* Test Item Value Reference Range Interpretation Comme nts white blood count (test code = white blood count) 9.1 K/uL 4.0-11.5 red blood count (test code = red blood count) 4.15 M/uL 3.80-5.20 hemoglobin (test code = hemoglobin) 11.3 g/dL 10.5-15.7 hematocrit (test code = hematocrit) 37.1 % 34.0-50.0 MCV [Entitic volume] (test c ode = 27654-9) 89.4 fL 86.0-100.0 mean corpuscular hemoglobin (test code = mean corpuscular hemoglobin) 27.2 pg 26.2-33.4 mean corpuscular HGB conc (t est code = mean corpuscular HGB conc) 30.5 g/dL 30.0-34.0 red cell distribution width (test code = red cell distribution width) 13.9 % 12.0-15.5 platelet count (test code = platelet count) 243 K/uL 165-450 mean platelet volume (test c ode = mean platelet volume) 10.9 fL 9.4-12.6 Segmented neutrophils/100 leukocytes in Blood (test code = 50582-4) 56.4 % 44.4-80.1 Immature granulocytes [#/vol ume] in Blood (test code = 96143-8) 0.04 K/uL 0.00-0.03 H lymphocyte% (test code = lymphocyte%) 34.8 % 10.0-50.0 mono % (test code = mono %) 7.4 % 3.6-12.0 eos % (test code = eos %) 0.9 % 0.0-5.4 basophil % (test code = baso alice %) 0.1 % 0.1-1.2 Band form neutrophils [#/vol ume] in Blood (test code = 57985-6) 5.12 K/uL 1.56-6.13 Lymphocytes [#/volume] in Sp ecimen by Automated count (test code = 98423-1) 3.16 K/uL 1.18-3.74 mono # (test code = mono #) 0.67 K/uL 0.24-0.86 eos # (test code = eos #) 0.08 K/uL 0.04-0.36 basophil # (test code = baso alice #) 0.01 K/uL 0.01-0.08 NRBC% (test code = NRBC%) 0 /100 WBC 0-0.2 NRBC# (test code = NRBC#) 0 K/uL [facility], method unspecified - [id number] 08:55:00NeutrophilsBandLymphocyteAtypical LymphMonocyteEosinophilBasophilMetamyelocyteMyelocytePromyelocyteBlastsNucleated Red Blood CellAbs Neutrophil Count (Man)Abs Lymph Count (Man)Abs Monocyte Count (Man)Abs Eosinophil Count (Man)Abs Basophil Count (Man)Platelet EstimatePlatelet MorphologyPoikilocytosisMacrocytosisRouleauMatagorda Medical GroupBlood type and Indirect antibody screen panel - [id number] 08:55:00* Test Item Value Reference Range Interpretation Comme nts Rh [Type] in Blood (test cod e = 61210-9) 4+ ABO and Rh group panel - Blo od (test code = 52922-7) O positive [facility] [Presence] in Serum by [id number] 08:55:00* Test Item Value Reference Range Interpretation Comme nts Reagin Ab [Presence] in Seru m by RPR (test code = 49875-3) nonreactive nonreactive [facility] RegionHepatitis B virus surface Ag [Presence] in Serum 2022-02-24 08:55:00* Test Item Value Reference Range Interpretation Comme nts .hepatitis B surface antigen (test code = .hepatitis B surface antigen) negative negative [facility] RegionUrinalysis macro (dipstick) panel - [id number] 16:24:52* Test Item Value Reference Range Interpretation Comme nts Leukocytes (test code = Leukocytes) Negative Nitrite (test code = Nitrite) negative Urobilinogen (test code = Urobilinogen) .2 Protein (test code = Protein) Negative pH (test code = pH) 6.0 Blood (test code = Blood) Non-Hemolyzed: Trace Specific [place] (test code = Specific [place]) 1.010 Ketone (test code = Ketone) Negative Bilirubin (test code = Bilirubin) Negative Glucose (test code = Glucose) Negative Appearance (test code = Appearance) Clear Color (test code = Color) Yellow [facility] Region[facility]inalysis macro (dipstick) panel - [id number] 16:06:02* Test Item Value Reference Range Interpretation Comme nts Leukocytes (test code = Leukocytes) Negative Nitrite (test code = Nitrite) positive Urobilinogen (test code = Urobilinogen) .2 Protein (test code = Protein) Negative pH (test code = pH) 6.0 Blood (test code = Blood) Negative Specific [place] (test code = Specific [place]) 1.030 Ketone (test code = Ketone) Negative Bilirubin (test code = Bilirubin) Negative Glucose (test code = Glucose) Negative Appearance (test code = Appearance) Clear Color (test code = Color) Yellow [facility] RegionUrinalysis macro (dipstick) panel - [id number] 16:06:02* Test Item Value Reference Range Interpretation Comme nts Leukocytes (test code = Leukocytes) Negative Nitrite (test code = Nitrite) positive Urobilinogen (test code = Urobilinogen) .2 Protein (test code = Protein) Negative pH (test code = pH) 6.0 Blood (test code = Blood) Negative Specific [place] (test code = Specific [place]) 1.030 Ketone (test code = Ketone) Negative Bilirubin (test code = Bilirubin) Negative Glucose (test code = Glucose) Negative Appearance (test code = Appearance) Clear Color (test code = Color) Yellow [facility] RegionUrinalysis macro (dipstick) panel - [id number] 14:34:22* Test Item Value Reference Range Interpretation Comme nts Leukocytes (test code = Leukocytes) Negative Nitrite (test code = Nitrite) negative Urobilinogen (test code = Urobilinogen) .2 Protein (test code = Protein) Negative pH (test code = pH) 6.5 Blood (test code = Blood) Negative Specific [place] (test code = Specific [place]) 1.010 Ketone (test code = Ketone) Negative Bilirubin (test code = Bilirubin) Negative Glucose (test code = Glucose) Negative Appearance (test code = Appearance) Clear Color (test code = Color) Yellow [facility] RegionUrinalysis macro (dipstick) panel - [id number] 14:34:22* Test Item Value Reference Range Interpretation Comme nts Leukocytes (test code = Leukocytes) Negative Nitrite (test code = Nitrite) negative Urobilinogen (test code = Urobilinogen) .2 Protein (test code = Protein) Negative pH (test code = pH) 6.5 Blood (test code = Blood) Negative Specific [place] (test code = Specific [place]) 1.010 Ketone (test code = Ketone) Negative Bilirubin (test code = Bilirubin) Negative Glucose (test code = Glucose) Negative Appearance (test code = Appearance) Clear Color (test code = Color) Yellow [facility] Region[facility]inalysis macro (dipstick) panel - [id number] 14:34:22* Test Item Value Reference Range Interpretation Comme nts Leukocytes (test code = Leukocytes) Negative Nitrite (test code = Nitrite) negative Urobilinogen (test code = Urobilinogen) .2 Protein (test code = Protein) Negative pH (test code = pH) 6.5 Blood (test code = Blood) Negative Specific [place] (test code = Specific [place]) 1.010 Ketone (test code = Ketone) Negative Bilirubin (test code = Bilirubin) Negative Glucose (test code = Glucose) Negative Appearance (test code = Appearance) Clear Color (test code = Color) Yellow [facility] Region[facility]inalysis macro (dipstick) panel - [id number] 15:56:17* Test Item Value Reference Range Interpretation Comme nts Leukocytes (test code = Leukocytes) Negative Nitrite (test code = Nitrite) negative Urobilinogen (test code = Urobilinogen) .2 Protein (test code = Protein) Negative pH (test code = pH) 6.5 Blood (test code = Blood) Negative Specific [place] (test code = Specific [place]) 1.015 Ketone (test code = Ketone) Negative Bilirubin (test code = Bilirubin) Negative Glucose (test code = Glucose) 100 Appearance (test code = Appearance) Clear Color (test code = Color) Yellow [facility] macro (dipstick) panel - [id number] 15:56:17* Test Item Value Reference Range Interpretation Comme nts Leukocytes (test code = Leukocytes) Negative Nitrite (test code = Nitrite) negative Urobilinogen (test code = Urobilinogen) .2 Protein (test code = Protein) Negative pH (test code = pH) 6.5 Blood (test code = Blood) Negative Specific [place] (test code = Specific [place]) 1.015 Ketone (test code = Ketone) Negative Bilirubin (test code = Bilirubin) Negative Glucose (test code = Glucose) 100 Appearance (test code = Appearance) Clear Color (test code = Color) Yellow [facility] Region[facility]inalysis macro (dipstick) panel - [id number] 15:56:17* Test Item Value Reference Range Interpretation Comme nts Leukocytes (test code = Leukocytes) Negative Nitrite (test code = Nitrite) negative Urobilinogen (test code = Urobilinogen) .2 Protein (test code = Protein) Negative pH (test code = pH) 6.5 Blood (test code = Blood) Negative Specific [place] (test code = Specific [place]) 1.015 Ketone (test code = Ketone) Negative Bilirubin (test code = Bilirubin) Negative Glucose (test code = Glucose) 100 Appearance (test code = Appearance) Clear Color (test code = Color) Yellow [facility] RegionUrinalysis macro (dipstick) panel - [id number] 15:56:17* Test Item Value Reference Range Interpretation Comme nts Leukocytes (test code = Leukocytes) Negative Nitrite (test code = Nitrite) negative Urobilinogen (test code = Urobilinogen) .2 Protein (test code = Protein) Negative pH (test code = pH) 6.5 Blood (test code = Blood) Negative Specific [place] (test code = Specific [place]) 1.015 Ketone (test code = Ketone) Negative Bilirubin (test code = Bilirubin) Negative Glucose (test code = Glucose) 100 Appearance (test code = Appearance) Clear Color (test code = Color) Yellow [facility]/rectal, streptococcus group [id number] 00:00:00* Test Item Value Reference Range Interpretation Comme nts group B strep (test code = g roup B strep) negative [facility], vaginal/rectal, streptococcus group [id number] 00:00:00* Test Item Value Reference Range Interpretation Comme nts group B strep (test code = g roup B strep) negative [facility], vaginal/rectal, streptococcus group [id number] 00:00:00* Test Item Value Reference Range Interpretation Comme nts group B strep (test code = g roup B strep) negative [facility] GroupUrinalysis macro (dipstick) panel - [id number] 15:54:06* Test Item Value Reference Range Interpretation Comme nts Leukocytes (test code = Leukocytes) Negative Nitrite (test code = Nitrite) negative Urobilinogen (test code = Urobilinogen) .2 Protein (test code = Protein) Negative pH (test code = pH) 7.0 Blood (test code = Blood) Negative Specific [place] (test code = Specific [place]) 1.015 Ketone (test code = Ketone) Negative Bilirubin (test code = Bilirubin) Negative Glucose (test code = Glucose) Negative Appearance (test code = Appearance) Clear Color (test code = Color) Yellow [facility] Group[facility]inalysis macro (dipstick) panel - [id number] 15:54:06* Test Item Value Reference Range Interpretation Comme nts Leukocytes (test code = Leukocytes) Negative Nitrite (test code = Nitrite) negative Urobilinogen (test code = Urobilinogen) .2 Protein (test code = Protein) Negative pH (test code = pH) 7.0 Blood (test code = Blood) Negative Specific [place] (test code = Specific [place]) 1.015 Ketone (test code = Ketone) Negative Bilirubin (test code = Bilirubin) Negative Glucose (test code = Glucose) Negative Appearance (test code = Appearance) Clear Color (test code = Color) Yellow [facility] (dipstick) panel - [id number] 15:54:06* Test Item Value Reference Range Interpretation Comme nts Leukocytes (test code = Leukocytes) Negative Nitrite (test code = Nitrite) negative Urobilinogen (test code = Urobilinogen) .2 Protein (test code = Protein) Negative pH (test code = pH) 7.0 Blood (test code = Blood) Negative Specific [place] (test code = Specific [place]) 1.015 Ketone (test code = Ketone) Negative Bilirubin (test code = Bilirubin) Negative Glucose (test code = Glucose) Negative Appearance (test code = Appearance) Clear Color (test code = Color) Yellow [facility]dipstick) panel - [id number] 15:54:06* Test Item Value Reference Range Interpretation Comme nts Leukocytes (test code = Leukocytes) Negative Nitrite (test code = Nitrite) negative Urobilinogen (test code = Urobilinogen) .2 Protein (test code = Protein) Negative pH (test code = pH) 7.0 Blood (test code = Blood) Negative Specific [place] (test code = Specific [place]) 1.015 Ketone (test code = Ketone) Negative Bilirubin (test code = Bilirubin) Negative Glucose (test code = Glucose) Negative Appearance (test code = Appearance) Clear Color (test code = Color) Yellow [facility] (dipstick) panel - [id number] 16:03:01* Test Item Value Reference Range Interpretation Comme nts Leukocytes (test code = Leukocytes) Negative Nitrite (test code = Nitrite) negative Urobilinogen (test code = Urobilinogen) .2 Protein (test code = Protein) Negative pH (test code = pH) 6.5 Blood (test code = Blood) Negative Specific [place] (test code = Specific [place]) 1.020 Ketone (test code = Ketone) Negative Bilirubin (test code = Bilirubin) Negative Glucose (test code = Glucose) 250 Appearance (test code = Appearance) Clear Color (test code = Color) Yellow [facility] (dipstick) panel - [id number] 16:03:01* Test Item Value Reference Range Interpretation Comme nts Leukocytes (test code = Leukocytes) Negative Nitrite (test code = Nitrite) negative Urobilinogen (test code = Urobilinogen) .2 Protein (test code = Protein) Negative pH (test code = pH) 6.5 Blood (test code = Blood) Negative Specific [place] (test code = Specific [place]) 1.020 Ketone (test code = Ketone) Negative Bilirubin (test code = Bilirubin) Negative Glucose (test code = Glucose) 250 Appearance (test code = Appearance) Clear Color (test code = Color) Yellow [facility] (dipstick) panel - [id number] 16:03:01* Test Item Value Reference Range Interpretation Comme nts Leukocytes (test code = Leukocytes) Negative Nitrite (test code = Nitrite) negative Urobilinogen (test code = Urobilinogen) .2 Protein (test code = Protein) Negative pH (test code = pH) 6.5 Blood (test code = Blood) Negative Specific [place] (test code = Specific [place]) 1.020 Ketone (test code = Ketone) Negative Bilirubin (test code = Bilirubin) Negative Glucose (test code = Glucose) 250 Appearance (test code = Appearance) Clear Color (test code = Color) Yellow [facility]stick) panel - [id number] 16:03:01* Test Item Value Reference Range Interpretation Comme nts Leukocytes (test code = Leukocytes) Negative Nitrite (test code = Nitrite) negative Urobilinogen (test code = Urobilinogen) .2 Protein (test code = Protein) Negative pH (test code = pH) 6.5 Blood (test code = Blood) Negative Specific [place] (test code = Specific [place]) 1.020 Ketone (test code = Ketone) Negative Bilirubin (test code = Bilirubin) Negative Glucose (test code = Glucose) 250 Appearance (test code = Appearance) Clear Color (test code = Color) Yellow [facility] macro (dipstick) panel - [id number] 16:16:09* Test Item Value Reference Range Interpretation Comme nts Leukocytes (test code = Leukocytes) Negative Nitrite (test code = Nitrite) negative Urobilinogen (test code = Urobilinogen) .2 Protein (test code = Protein) Negative pH (test code = pH) 7.0 Blood (test code = Blood) Small Specific [place] (test code = Specific [place]) 1.015 Ketone (test code = Ketone) Negative Bilirubin (test code = Bilirubin) Negative Glucose (test code = Glucose) Negative Appearance (test code = Appearance) Clear Color (test code = Color) Yellow [facility] (dipstick) panel - [id number] 16:16:09* Test Item Value Reference Range Interpretation Comme nts Leukocytes (test code = Leukocytes) Negative Nitrite (test code = Nitrite) negative Urobilinogen (test code = Urobilinogen) .2 Protein (test code = Protein) Negative pH (test code = pH) 7.0 Blood (test code = Blood) Small Specific [place] (test code = Specific [place]) 1.015 Ketone (test code = Ketone) Negative Bilirubin (test code = Bilirubin) Negative Glucose (test code = Glucose) Negative Appearance (test code = Appearance) Clear Color (test code = Color) [facility] - [id number] 16:16:09* Test Item Value Reference Range Interpretation Comme nts Leukocytes (test code = Leukocytes) Negative Nitrite (test code = Nitrite) negative Urobilinogen (test code = Urobilinogen) .2 Protein (test code = Protein) Negative pH (test code = pH) 7.0 Blood (test code = Blood) Small Specific [place] (test code = Specific [place]) 1.015 Ketone (test code = Ketone) Negative Bilirubin (test code = Bilirubin) Negative Glucose (test code = Glucose) Negative Appearance (test code = Appearance) Clear Color (test code = Color) Yellow [facility] macro (dipstick) panel - [id number] 16:16:09* Test Item Value Reference Range Interpretation Comme nts Leukocytes (test code = Leukocytes) Negative Nitrite (test code = Nitrite) negative Urobilinogen (test code = Urobilinogen) .2 Protein (test code = Protein) Negative pH (test code = pH) 7.0 Blood (test code = Blood) Small Specific [place] (test code = Specific [place]) 1.015 Ketone (test code = Ketone) Negative Bilirubin (test code = Bilirubin) Negative Glucose (test code = Glucose) Negative Appearance (test code = Appearance) Clear Color (test code = Color) [facility], [facility] + CT/NG/TV + reflex HR [id number] 00:00:00* Test Item Value Reference Range Interpretation Comme nts TP reflex HPV ASCUS,CT/NG/TV (test code = TP reflex HPV ASCUS,CT/NG/TV) normal CT/NG (test code = CT/NG) normal trichomonas vaginalis addon - swab (test code = trichomonas vaginalis addon - swab) normal [facility]Ur[facility] macro (dipstick) panel - [id number] 09:17:51* Test Item Value Reference Range Interpretation Comme nts Leukocytes (test code = Leukocytes) Negative Nitrite (test code = Nitrite) negative Urobilinogen (test code = Urobilinogen) .2 Protein (test code = Protein) Negative pH (test code = pH) 7.0 Blood (test code = Blood) Negative Specific [place] (test code = Specific [place]) 1.015 Ketone (test code = Ketone) Negative Bilirubin (test code = Bilirubin) Negative Glucose (test code = Glucose) Negative Appearance (test code = Appearance) Clear Color (test code = Color) Yellow [facility]Ur[facility]ysis macro (dipstick) panel - [id number] 09:17:51* Test Item Value Reference Range Interpretation Comme nts Leukocytes (test code = Leukocytes) Negative Nitrite (test code = Nitrite) negative Urobilinogen (test code = Urobilinogen) .2 Protein (test code = Protein) Negative pH (test code = pH) 7.0 Blood (test code = Blood) Negative Specific [place] (test code = Specific [place]) 1.015 Ketone (test code = Ketone) Negative Bilirubin (test code = Bilirubin) Negative Glucose (test code = Glucose) Negative Appearance (test code = Appearance) Clear Color (test code = Color) Yellow [facility], [id number] 09:13:36* Test Item Value Reference Range Interpretation Comme nts Test (test code = Test) positive [facility] test, [id number] 09:13:36* Test Item Value Reference Range Interpretation Comme nts Test (test code = Test) positive [facility] RegionBacteria identified in Urine by [id number] 08:28:00* Test Item Value Reference Range Interpretation Comme nts Bacteria identified in Urine by Culture (test code = 630-4) scant skin yolanda present. pathogen not present at 2 days. [facility] W Auto Differential panel - [id number] 08:28:00 * Test Item Value Reference Range Interpretation Comme nts white blood count (test code = white blood count) 8.8 K/uL 4.0-11.5 red blood count (test code = red blood count) 3.73 M/uL 3.80-5.20 L hemoglobin (test code = hemoglobin) 11.2 g/dL 10.5-15.7 hematocrit (test code = hematocrit) 35.3 % 34.0-50.0 MCV [Entitic volume] (test c ode = 91612-0) 94.6 fL 86.0-100.0 mean corpuscular hemoglobin (test code = mean corpuscular hemoglobin) 30.0 pg 26.2-33.4 mean corpuscular HGB conc (t est code = mean corpuscular HGB conc) 31.7 g/dL 30.0-34.0 red cell distribution width (test code = red cell distribution width) 13.2 % 12.0-15.5 platelet count (test code = platelet count) 246 K/uL 165-450 mean platelet volume (test c ode = mean platelet volume) 10.8 fL 9.4-12.6 Segmented neutrophils/100 leukocytes in Blood (test code = 56686-1) 62.2 % 44.4-80.1 Immature granulocytes [#/vol ume] in Blood (test code = 96361-1) 0.06 K/uL 0.00-0.03 H lymphocyte% (test code = lymphocyte%) 28.9 % 10.0-50.0 mono % (test code = mono %) 7.0 % 3.6-12.0 eos % (test code = eos %) 0.9 % 0.0-5.4 Basophils/100 leukocytes in Specimen (test code = 04408-5) 0.3 % 0.1-1.2 Band form neutrophils [#/vol ume] in Blood (test code = 79833-6) 5.47 K/uL 1.56-6.13 Lymphocytes [#/volume] in Sp ecimen by Automated count (test code = 68292-0) 2.55 K/uL 1.18-3.74 mono # (test code = mono #) 0.62 K/uL 0.24-0.86 eos # (test code = eos #) 0.08 K/uL 0.04-0.36 basophil # (test code = baso alice #) 0.03 K/uL 0.01-0.08 NRBC% (test code = NRBC%) 0 /100 WBC 0-0.2 NRBC# (test code = NRBC#) 0 K/uL [facility] GroupABO and Rh group [Type] in [id number] 08:28:00* Test Item Value Reference Range Interpretation Comme nts Rh [Type] in Blood (test cod e = 67414-5) 4+ ABO and Rh group panel - Blo od (test code = 26554-0) O positive [facility] antibody screen [Presence] in Serum or Plasma 2021-12-12 08:28:00* Test Item Value Reference Range Interpretation Comme nts Blood group antibody screen [Presence] in Serum or Plasma (test code = 890-4) negative [facility] GroupDifferential panel, method unspecified - [id number] 00:00:00NeutrophilsBandLymphocyteAtypical LymphMonocyteEosinophilBasophilMetamyelocyteMyelocytePromyelocyteBlastsNucleated Red Blood CellAbs Neutrophil Count (Man)Abs Lymph Count (Man)Abs Monocyte Count (Man)Abs Eosinophil Count (Man)Abs Basophil Count (Man)Platelet EstimatePlatelet MorphologyMatagorda Medical GroupHemoglobin A1c [Mass/volume] in [id number] 00:00:00* Test Item Value Reference Range Interpretation Comme nts Hemoglobin A1c [Mass/volume] in Blood (test code = 74218-1) 4.8 % 4.0-6.0 [facility] GroupThyrotropin [Units/volume] in Serum or [id number] 00:00:00* Test Item Value Reference Range Interpretation Comme nts Thyrotropin [Units/volume] i n Serum or Plasma (test code = 3016-3) 2.46 uIU/mL 0.36-3.74 [facility]HIV 1+2 Ab [Presence] in [id number] 00:00:00HIV P24 AgHIV-1/2 AbMataH. [facility] Watkins [facility] HospitalHepatitis B virus surface Ag [Presence] in [id number] 00:00:00* Test Item Value Reference Range Interpretation Comme nts .hepatitis B surface antigen (test code = .hepatitis B surface antigen) negative negative [facility] RegionReagin Ab [Presence] in Serum by [id number] 00:00:00* Test Item Value Reference Range Interpretation Comme nts Reagin Ab [Presence] in Seru m by RPR (test code = 44525-6) nonreactive nonreactive [facility] RegionUrinalysis macro (dipstick) panel - [id number] 14:14:04* Test Item Value Reference Range Interpretation Comme nts Leukocytes (test code = Leukocytes) Small Nitrite (test code = Nitrite) negative Urobilinogen (test code = Urobilinogen) .2 Protein (test code = Protein) Negative pH (test code = pH) 7.0 Blood (test code = Blood) Negative Specific [place] (test code = Specific [place]) 1.020 Ketone (test code = Ketone) Negative Bilirubin (test code = Bilirubin) Negative Glucose (test code = Glucose) Negative Appearance (test code = Appearance) Clear Color (test code = Color) Yellow [facility] RegionUrinalysis macro (dipstick) panel - [id number] 14:02:17* Test Item Value Reference Range Interpretation Comme nts Leukocytes (test code = Leukocytes) Trace Nitrite (test code = Nitrite) negative Urobilinogen (test code = Urobilinogen) .2 Protein (test code = Protein) Negative pH (test code = pH) 7.0 Blood (test code = Blood) Negative Specific [place] (test code = Specific [place]) 1.020 Ketone (test code = Ketone) Negative Bilirubin (test code = Bilirubin) Negative Glucose (test code = Glucose) Negative Appearance (test code = Appearance) Clear Color (test code = Color) Yellow [facility] RegionUrinalysis macro (dipstick) panel - [id number] 14:02:17* Test Item Value Reference Range Interpretation Comme nts Leukocytes (test code = Leukocytes) Trace Nitrite (test code = Nitrite) negative Urobilinogen (test code = Urobilinogen) .2 Protein (test code = Protein) Negative pH (test code = pH) 7.0 Blood (test code = Blood) Negative Specific [place] (test code = Specific [place]) 1.020 Ketone (test code = Ketone) Negative Bilirubin (test code = Bilirubin) Negative Glucose (test code = Glucose) Negative Appearance (test code = Appearance) Clear Color (test code = Color) Yellow [facility] W Auto Differential panel - [id number] 03:02:00 * Test Item Value Reference Range Interpretation Comme nts white blood count (test code = white blood count) 14.3 K/uL 4.0-11.5 H red blood count (test code = red blood count) 4.13 M/uL 3.80-5.20 Hemoglobin [Mass/volume] in Blood (test code = 718-7) 12.2 g/dL 10.5-15.7 hematocrit (test code = hematocrit) 37.7 % 34.0-50.0 Erythrocyte mean corpuscular volume [Entitic volume] (test code = 17487-1) 91.3 fL 78-98 Erythrocyte mean corpuscular hemoglobin [Entitic mass] (test code = 23913-9) 29.6 pg 26.2-33.4 mean corpuscular HGB conc (t est code = mean corpuscular HGB conc) 32.4 g/dL 31.5-36.2 red cell distribution width (test code = red cell distribution width) 13.3 % 11.5-15.5 Platelets [#/volume] in Bloo d (test code = 20995-2) 185 K/uL 137-338 Platelet mean volume [Entiti c volume] in Blood (test code = 91883-4) 9.1 fL 8.4-11.8 Neutrophils.band form/100 leukocytes in Blood (test code = 39077-5) 75.0 % 44.4-80.1 Lymphocytes/100 leukocytes i n Body fluid (test code = 99089-7) 16.3 % 10.0-50.0 Monocytes/100 leukocytes in Blood by Automated count (test code = 5905-5) 7.3 % 3.6-12.04 Eosinophils/100 leukocytes i n Blood by Automated count (test code = 713-8) 0.8 % 0.0-5.41 Basophils/100 leukocytes in Blood by Automated count (test code = 706-2) 0.6 % 0.0-0.79 [facility] RegionUrinalysis macro (dipstick) panel - [id number] 15:55:10* Test Item Value Reference Range Interpretation Comme nts Leukocytes (test code = Leukocytes) Moderate Nitrite (test code = Nitrite) negative Urobilinogen (test code = Urobilinogen) .2 Protein (test code = Protein) Negative pH (test code = pH) 6.0 Blood (test code = Blood) Small Specific [place] (test code = Specific [place]) 1.020 Ketone (test code = Ketone) Negative Bilirubin (test code = Bilirubin) Negative Glucose (test code = Glucose) Negative Appearance (test code = Appearance) Clear Color (test code = Color) Yellow [facility] RegionUrinalysis macro (dipstick) panel - [id number] 15:55:10* Test Item Value Reference Range Interpretation Comme nts Leukocytes (test code = Leukocytes) Moderate Nitrite (test code = Nitrite) negative Urobilinogen (test code = Urobilinogen) .2 Protein (test code = Protein) Negative pH (test code = pH) 6.0 Blood (test code = Blood) Small Specific [place] (test code = Specific [place]) 1.020 Ketone (test code = Ketone) Negative Bilirubin (test code = Bilirubin) Negative Glucose (test code = Glucose) Negative Appearance (test code = Appearance) Clear Color (test code = Color) Yellow [facility] Biophysical profile panel [id number] 15:37:23* Test Item Value Reference Range Interpretation Comme nts Amniotic Fluid Index (test c ode = Amniotic Fluid Index) 2 (14.7) Tone (test code = Tone) 2 Breathing (test code = Breathing) 2 Movement (test code = Movement) 2 Non-Stress Test (test code = Non-Stress Test) 2 [facility] Biophysical profile panel [id number] 15:37:23* Test Item Value Reference Range Interpretation Comme nts Amniotic Fluid Index (test c ode = Amniotic Fluid Index) 2 (14.7) Tone (test code = Tone) 2 Breathing (test code = Breathing) 2 Movement (test code = Movement) 2 Non-Stress Test (test code = Non-Stress Test) 2 [facility] W Auto Differential panel - [id number] 10:58:00 * Test Item Value Reference Range Interpretation Comme nts white blood count (test code = white blood count) 11.6 K/uL 4.0-11.5 H red blood count (test code = red blood count) 4.18 M/uL 3.80-5.20 Hemoglobin [Mass/volume] in Blood (test code = 718-7) 12.1 g/dL 10.5-15.7 hematocrit (test code = hematocrit) 37.4 % 34.0-50.0 Erythrocyte mean corpuscular volume [Entitic volume] (test code = 88700-5) 89.6 fL 78-98 Erythrocyte mean corpuscular hemoglobin [Entitic mass] (test code = 16006-1) 29.0 pg 26.2-33.4 mean corpuscular HGB conc (t est code = mean corpuscular HGB conc) 32.4 g/dL 31.5-36.2 red cell distribution width (test code = red cell distribution width) 13.1 % 11.5-15.5 Platelets [#/volume] in Bloo d (test code = 31934-5) 205 K/uL 137-338 Platelet mean volume [Entiti c volume] in Blood (test code = 94003-2) 9.1 fL 8.4-11.8 Neutrophils.band form/100 leukocytes in Blood (test code = 07747-5) 73.2 % 44.4-80.1 Lymphocytes/100 leukocytes i n Body fluid (test code = 63305-2) 18.8 % 10.0-50.0 Monocytes/100 leukocytes in Blood by Automated count (test code = 5905-5) 6.2 % 3.6-12.04 Eosinophils/100 leukocytes i n Blood by Automated count (test code = 713-8) 1.3 % 0.0-5.41 Basophils/100 leukocytes in Blood by Automated count (test code = 706-2) 0.5 % 0.0-0.79 [facility] RegionComprehensive [facility] 2000 panel - Serum or Plasma 2018-11-02 10:58:00* Test Item Value Reference Range Interpretation Comme nts Glucose [Mass/volume] in Ser um or Plasma (test code = 2345-7) 89 mg/dL 74-106 Urea nitrogen [Mass/volume] in Serum or Plasma (test code = 3094-0) 10 mg/dL 6-20 Osmolality of Serum or Plasm a (test code = 2692-2) 274 280-300 L creatinine (test code = creatinine) 0.5 mg/dL 0.50-0.90 glomerular filtration rate ( test code = glomerular filtration rate) >60.00 Urea nitrogen/Creatinine [Ma ss Ratio] in Serum or Plasma (test code = 3097-3) 20.0 12-20 sodium level (test code = so dium level) 138 mmol/L 135-145 potassium level (test code = potassium level) 3.6 mmol/L 3.5-5.2 chloride level (test code = chloride level) 104 mmol/L 98-108 CO2 (test code = CO2) 19 mmol/L 21-32 L anion gap (test code = anion gap) 18.6 mEq/L 12-20 calcium level (test code = c alcium level) 8.8 mg/dL 8.6-10.0 total protein (test code = t otal protein) 6.6 g/dL 6.6-8.7 albumin (test code = albumin) 3.4 g/dL 3.5-5.2 L globulin (test code = globulin) 3.2 gm/dL A/G ratio (test code = A/G ratio) 1.1 >1.0 bilirubin,total (test code = bilirubin,total) <0.3 0.0-1.2 AST/SGOT (test code = AST/SGOT) 19 U/L 15-32 Alanine aminotransferase [Enzymatic activity/volume] in Serum or Plasma (test code = 1742-6) 11 U/L 0-33 Alkaline phosphatase [Enzyma tic activity/volume] in Serum or Plasma (test code = 6768-6) 294 U/L 35-105 H [facility] RegionUrate [Mass/volume] in [id number] 10:58:00* Test Item Value Reference Range Interpretation Comme nts uric acid (test code = uric acid) 3.9 mg/dL 2.4-5.7 [facility] RegionD-Lactate [Moles/volume] in Serum or [id number] 10:58:00* Test Item Value Reference Range Interpretation Comme nts LDH (test code = LDH) 168 U/L 135-214 [facility] RegionReagin Ab [Presence] in Serum by [id number] 10:58:00* Test Item Value Reference Range Interpretation Comme nts Reagin Ab [Presence] in Seru m by RPR (test code = 95447-8) nonreactive nonreactive [facility] RegionHepatitis B virus surface Ag [Presence] in Serum 2018-11-02 10:58:00* Test Item Value Reference Range Interpretation Comme nts .hepatitis B surface antigen (test code = .hepatitis B surface antigen) negative negative [facility] RegionTmmgbInhdv-2-Fusqasjvzpqbs.placental [Presence] in Vaginal [id number] 09:05:00* Test Item Value Reference Range Interpretation Comme nts Nmvtt-3-Lwyrejslmotby.placen jose [Presence] in Vaginal fluid (test code = 99585-2) negative neg [facility] RegionUrinalysis complete panel - [id number] 01:30:00* Test Item Value Reference Range Interpretation Comme nts Color of Urine by Auto (test code = 98294-3) light yellow Appearance of Urine (test co de = 5767-9) SL cloudy clear A Glucose [Presence] in Urine by Automated test strip (test code = 35928-8) negative negative Bilirubin.total [Mass/volume ] in Urine (test code = 1978-6) negative negative Ketones [Mass/volume] in Uri ne by Automated test strip (test code = 56839-9) negative negative Specific gravity of Urine by Automated test strip (test code = 30059-8) 1.013 1.003-1.030 blood urine (test code = blo od urine) negative negative pH of Urine (test code = 2756-5) 6.000 5-9 protein urine (UA) (test cod e = protein urine (UA)) negative negative Urobilinogen [Presence] in U rine (test code = 71895-8) normal 0.2-1.0 Nitrite [Presence] in Urine by Test strip (test code = 5802-4) negative negative Leukocyte esterase [Presence ] in Urine by Automated test strip (test code = 05587-7) =4 negative H Erythrocytes [#/volume] in U rine by Automated count (test code = 798-9) =1-5 0-5 Leukocytes [#/area] in Urine sediment by Automated count (test code = 84176-9) =30-49 0-5 H Epithelial cells [Presence] in Urine sediment by Light microscopy (test code = 48920-6) =6-10 0-5 Bacteria identified in Urine by Culture (test code = 630-4) moderate (2 none detect H Casts [#/area] in Urine sedi ment by Automated count (test code = 43678-2) =2-5 none detect urine culture added? (test c ode = urine culture added?) yes path casts,U (test code = pa th casts,U) none seen none detect [facility] identified in Urine by [id number] 01:30:00* Test Item Value Reference Range Interpretation Comme nts Bacteria identified in Urine by Culture (test code = 630-4) no growth after 2 days [facility] GroupUrinalysis complete panel - [id number] 01:30:00* Test Item Value Reference Range Interpretation Comme nts Color of Urine by Auto (test code = 52088-2) light yellow Appearance of Urine (test co de = 5767-9) SL cloudy clear A Glucose [Presence] in Urine by Automated test strip (test code = 85864-7) negative negative Bilirubin.total [Mass/volume ] in Urine (test code = 1978-6) negative negative Ketones [Mass/volume] in Uri ne by Automated test strip (test code = 77357-0) negative negative Specific gravity of Urine by Automated test strip (test code = 11907-4) 1.013 1.003-1.030 blood urine (test code = blo od urine) negative negative pH of Urine (test code = 2756-5) 6.000 5-9 protein urine (UA) (test cod e = protein urine (UA)) negative negative Urobilinogen [Presence] in U rine (test code = 06216-2) normal 0.2-1.0 Nitrite [Presence] in Urine by Test strip (test code = 5802-4) negative negative Leukocyte esterase [Presence ] in Urine by Automated test strip (test code = 81330-5) =4 negative H Erythrocytes [#/volume] in U rine by Automated count (test code = 798-9) =1-5 0-5 Leukocytes [#/area] in Urine sediment by Automated count (test code = 19085-4) =30-49 0-5 H Epithelial cells [Presence] in Urine sediment by Light microscopy (test code = 69187-2) =6-10 0-5 Bacteria identified in Urine by Culture (test code = 630-4) moderate (2 none detect H Casts [#/area] in Urine sedi ment by Automated count (test code = 37175-7) =2-5 none detect urine culture added? (test c ode = urine culture added?) yes path casts,U (test code = pa th casts,U) none seen none detect [facility] GroupBacteria identified in Urine by [id number] 01:30:00* Test Item Value Reference Range Interpretation Comme nts Bacteria identified in Urine by Culture (test code = 630-4) no growth after 2 days [facility] GroupUrinalysis macro (dipstick) panel - [id number] 15:42:44* Test Item Value Reference Range Interpretation Comme nts Leukocytes (test code = Leukocytes) Large Nitrite (test code = Nitrite) negative Urobilinogen (test code = Urobilinogen) .2 Protein (test code = Protein) Negative pH (test code = pH) 6.0 Blood (test code = Blood) Negative Specific [place] (test code = Specific [place]) 1.015 Ketone (test code = Ketone) Negative Bilirubin (test code = Bilirubin) Negative Glucose (test code = Glucose) Negative Appearance (test code = Appearance) Clear Color (test code = Color) Yellow [facility] GroupUrinalysis macro (dipstick) panel - [id number] 15:42:44* Test Item Value Reference Range Interpretation Comme nts Leukocytes (test code = Leukocytes) Large Nitrite (test code = Nitrite) negative Urobilinogen (test code = Urobilinogen) .2 Protein (test code = Protein) Negative pH (test code = pH) 6.0 Blood (test code = Blood) Negative Specific [place] (test code = Specific [place]) 1.015 Ketone (test code = Ketone) Negative Bilirubin (test code = Bilirubin) Negative Glucose (test code = Glucose) Negative Appearance (test code = Appearance) Clear Color (test code = Color) Yellow [facility] (dipstick) panel - [id number] 15:42:44* Test Item Value Reference Range Interpretation Comme nts Leukocytes (test code = Leukocytes) Large Nitrite (test code = Nitrite) negative Urobilinogen (test code = Urobilinogen) .2 Protein (test code = Protein) Negative pH (test code = pH) 6.0 Blood (test code = Blood) Negative Specific [place] (test code = Specific [place]) 1.015 Ketone (test code = Ketone) Negative Bilirubin (test code = Bilirubin) Negative Glucose (test code = Glucose) Negative Appearance (test code = Appearance) Clear Color (test code = Color) [facility] Differential panel - [id number] 02:30:00 * Test Item Value Reference Range Interpretation Comme nts white blood count (test code = white blood count) 8.2 K/uL 4.0-11.5 red blood count (test code = red blood count) 3.93 M/uL 3.80-5.20 Hemoglobin [Mass/volume] in Blood (test code = 718-7) 11.6 g/dL 10.5-15.7 hematocrit (test code = hematocrit) 36.4 % 34.0-50.0 Erythrocyte mean corpuscular volume [Entitic volume] (test code = 95295-2) 92.7 fL 78-98 Erythrocyte mean corpuscular hemoglobin [Entitic mass] (test code = 26105-2) 29.5 pg 26.2-33.4 mean corpuscular HGB conc (t est code = mean corpuscular HGB conc) 31.8 g/dL 31.5-36.2 red cell distribution width (test code = red cell distribution width) 13.2 % 11.5-15.5 Platelets [#/volume] in Bloo d (test code = 79629-2) 216 K/uL 137-338 Platelet mean volume [Entiti c volume] in Blood (test code = 01123-1) 10.0 fL 8.4-11.8 Neutrophils.band form/100 leukocytes in Blood (test code = 79720-3) 62.7 % 44.4-80.1 Lymphocytes/100 leukocytes i n Body fluid (test code = 61641-1) 27.7 % 10.0-50.0 Monocytes/100 leukocytes in Blood by Automated count (test code = 5905-5) 7.4 % 3.6-12.04 Eosinophils/100 leukocytes i n Blood by Automated count (test code = 713-8) 1.3 % 0.0-5.41 Basophils/100 leukocytes in Blood by Automated count (test code = 706-2) 0.8 % 0.0-0.79 H [facility]Com[facility] 2000 panel - Serum or Plasma 2018-10-25 02:30:00* Test Item Value Reference Range Interpretation Comme nts glucose (test code = glucose) 96 mg/dL 74-106 Urea nitrogen [Mass/volume] in Serum or Plasma (test code = 3094-0) 14 mg/dL 6-20 Osmolality of Serum or Plasm a (test code = 2692-2) 272 280-300 L creatinine (test code = creatinine) 0.5 mg/dL 0.50-0.90 glomerular filtration rate ( test code = glomerular filtration rate) >60.00 Urea nitrogen/Creatinine [Ma ss Ratio] in Serum or Plasma (test code = 3097-3) 28.0 12-20 H sodium level (test code = so dium level) 136 mmol/L 135-145 Potassium [Moles/volume] in Body fluid (test code = 2821-7) 3.8 mmol/L 3.5-5.2 chloride level (test code = chloride level) 100 mmol/L 98-108 CO2 (test code = CO2) 25 mmol/L 21-32 anion gap (test code = anion gap) 14.8 mEq/L 12-20 calcium level (test code = c alcium level) 9.2 mg/dL 8.6-10.0 total protein (test code = t otal protein) 6.8 g/dL 6.6-8.7 albumin (test code = albumin) 3.5 g/dL 3.5-5.2 globulin (test code = globulin) 3.3 gm/dL A/G ratio (test code = A/G ratio) 1.1 >1.0 bilirubin,total (test code = bilirubin,total) <0.3 0.0-1.2 AST/SGOT (test code = AST/SGOT) 23 U/L 15-32 Alanine aminotransferase [Enzymatic activity/volume] in Serum or Plasma (test code = 1742-6) 12 U/L 0-33 Alkaline phosphatase [Enzyma tic activity/volume] in Serum or Plasma (test code = 6768-6) 243 U/L 35-105 H [facility] RegionUrate [Mass/volume] in [id number] 02:30:00* Test Item Value Reference Range Interpretation Comme nts uric acid (test code = uric acid) 3.7 mg/dL 2.4-5.7 [facility] W Auto Differential panel - [id number] 02:30:00 * Test Item Value Reference Range Interpretation Comme nts white blood count (test code = white blood count) 8.2 K/uL 4.0-11.5 red blood count (test code = red blood count) 3.93 M/uL 3.80-5.20 Hemoglobin [Mass/volume] in Blood (test code = 718-7) 11.6 g/dL 10.5-15.7 hematocrit (test code = hematocrit) 36.4 % 34.0-50.0 Erythrocyte mean corpuscular volume [Entitic volume] (test code = 28756-5) 92.7 fL 78-98 Erythrocyte mean corpuscular hemoglobin [Entitic mass] (test code = 77527-5) 29.5 pg 26.2-33.4 mean corpuscular HGB conc (t est code = mean corpuscular HGB conc) 31.8 g/dL 31.5-36.2 red cell distribution width (test code = red cell distribution width) 13.2 % 11.5-15.5 Platelets [#/volume] in Bloo d (test code = 19443-5) 216 K/uL 137-338 Platelet mean volume [Entiti c volume] in Blood (test code = 16105-2) 10.0 fL 8.4-11.8 Neutrophils.band form/100 leukocytes in Blood (test code = 52148-3) 62.7 % 44.4-80.1 Lymphocytes/100 leukocytes i n Body fluid (test code = 86541-1) 27.7 % 10.0-50.0 Monocytes/100 leukocytes in Blood by Automated count (test code = 5905-5) 7.4 % 3.6-12.04 Eosinophils/100 leukocytes i n Blood by Automated count (test code = 713-8) 1.3 % 0.0-5.41 Basophils/100 leukocytes in Blood by Automated count (test code = 706-2) 0.8 % 0.0-0.79 H [facility] 2000 panel - Serum or Plasma 2018-10-25 02:30:00* Test Item Value Reference Range Interpretation Comme nts glucose (test code = glucose) 96 mg/dL 74-106 Urea nitrogen [Mass/volume] in Serum or Plasma (test code = 3094-0) 14 mg/dL 6-20 Osmolality of Serum or Plasm a (test code = 2692-2) 272 280-300 L creatinine (test code = creatinine) 0.5 mg/dL 0.50-0.90 glomerular filtration rate ( test code = glomerular filtration rate) >60.00 Urea nitrogen/Creatinine [Ma ss Ratio] in Serum or Plasma (test code = 3097-3) 28.0 12-20 H sodium level (test code = so dium level) 136 mmol/L 135-145 Potassium [Moles/volume] in Body fluid (test code = 2821-7) 3.8 mmol/L 3.5-5.2 chloride level (test code = chloride level) 100 mmol/L 98-108 CO2 (test code = CO2) 25 mmol/L 21-32 anion gap (test code = anion gap) 14.8 mEq/L 12-20 calcium level (test code = c alcium level) 9.2 mg/dL 8.6-10.0 total protein (test code = t otal protein) 6.8 g/dL 6.6-8.7 albumin (test code = albumin) 3.5 g/dL 3.5-5.2 globulin (test code = globulin) 3.3 gm/dL A/G ratio (test code = A/G ratio) 1.1 >1.0 bilirubin,total (test code = bilirubin,total) <0.3 0.0-1.2 AST/SGOT (test code = AST/SGOT) 23 U/L 15-32 Alanine aminotransferase [Enzymatic activity/volume] in Serum or Plasma (test code = 1742-6) 12 U/L 0-33 Alkaline phosphatase [Enzyma tic activity/volume] in Serum or Plasma (test code = 6768-6) 243 U/L 35-105 H [facility] GroupUrate [Mass/volume] in [id number] 02:30:00* Test Item Value Reference Range Interpretation Comme nts uric acid (test code = uric acid) 3.7 mg/dL 2.4-5.7 [facility]Urinalysis macro (dipstick) panel - [id number] 15:57:24* Test Item Value Reference Range Interpretation Comme nts Leukocytes (test code = Leukocytes) Small Nitrite (test code = Nitrite) negative Urobilinogen (test code = Urobilinogen) .2 Protein (test code = Protein) Negative pH (test code = pH) 7.0 Blood (test code = Blood) Negative Specific [place] (test code = Specific [place]) 1.015 Ketone (test code = Ketone) Negative Bilirubin (test code = Bilirubin) Negative Glucose (test code = Glucose) Negative Appearance (test code = Appearance) Clear Color (test code = Color) Yellow [facility] RegionUrinalysis macro (dipstick) panel - [id number] 15:57:24* Test Item Value Reference Range Interpretation Comme nts Leukocytes (test code = Leukocytes) Small Nitrite (test code = Nitrite) negative Urobilinogen (test code = Urobilinogen) .2 Protein (test code = Protein) Negative pH (test code = pH) 7.0 Blood (test code = Blood) Negative Specific [place] (test code = Specific [place]) 1.015 Ketone (test code = Ketone) Negative Bilirubin (test code = Bilirubin) Negative Glucose (test code = Glucose) Negative Appearance (test code = Appearance) Clear Color (test code = Color) Yellow [facility]Urinalysis macro (dipstick) panel - [id number] 15:57:24* Test Item Value Reference Range Interpretation Comme nts Leukocytes (test code = Leukocytes) Small Nitrite (test code = Nitrite) negative Urobilinogen (test code = Urobilinogen) .2 Protein (test code = Protein) Negative pH (test code = pH) 7.0 Blood (test code = Blood) Negative Specific [place] (test code = Specific [place]) 1.015 Ketone (test code = Ketone) Negative Bilirubin (test code = Bilirubin) Negative Glucose (test code = Glucose) Negative Appearance (test code = Appearance) Clear Color (test code = Color) Yellow [facility] GroupStreptococcus agalactiae [Presence] in Unspecified specimen by Organism specific [id number] 02:56:00ResultsMabon [facility] Medical GroupStreptococcus agalactiae [Presence] in Unspecified specimen by Organism specific [id number] 02:56:00ResultsThe [facility]als [facility] GroupUrinalysis macro (dipstick) panel - [id number] 14:48:08* Test Item Value Reference Range Interpretation Comme nts Leukocytes (test code = Leukocytes) Small Nitrite (test code = Nitrite) negative Urobilinogen (test code = Urobilinogen) .2 Protein (test code = Protein) Negative pH (test code = pH) 7.5 Blood (test code = Blood) Negative Specific [place] (test code = Specific [place]) 1.015 Ketone (test code = Ketone) Negative Bilirubin (test code = Bilirubin) Negative Glucose (test code = Glucose) Negative Appearance (test code = Appearance) Clear Color (test code = Color) Yellow [facility] GroupUrinalysis macro (dipstick) panel - [id number] 14:48:08* Test Item Value Reference Range Interpretation Comme nts Leukocytes (test code = Leukocytes) Small Nitrite (test code = Nitrite) negative Urobilinogen (test code = Urobilinogen) .2 Protein (test code = Protein) Negative pH (test code = pH) 7.5 Blood (test code = Blood) Negative Specific [place] (test code = Specific [place]) 1.015 Ketone (test code = Ketone) Negative Bilirubin (test code = Bilirubin) Negative Glucose (test code = Glucose) Negative Appearance (test code = Appearance) Clear Color (test code = Color) Yellow [facility] W Auto Differential panel - [id number] 01:15:00 * Test Item Value Reference Range Interpretation Comme [facility] white blood count (test code = white blood count) 8.9 K/uL 4.0-11.5 red blood count (test code = red blood count) 3.62 M/uL 3.80-5.20 L Hemoglobin [Mass/volume] in Blood (test code = 718-7) 11.1 g/dL 10.5-15.7 hematocrit (test code = hematocrit) 34.1 % 34.0-50.0 Erythrocyte mean corpuscular volume [Entitic volume] (test code = 22133-2) 94.3 fL 78-98 Erythrocyte mean corpuscular hemoglobin [Entitic mass] (test code = 22103-6) 30.8 pg 26.2-33.4 mean corpuscular HGB conc (t est code = mean corpuscular HGB conc) 32.7 g/dL 31.5-36.2 red cell distribution width (test code = red cell distribution width) 12.5 % 11.5-15.5 Platelets [#/volume] in Bloo d (test code = 22367-0) 244 K/uL 137-338 Platelet mean volume [Entiti c volume] in Blood (test code = 38993-1) 8.5 fL 8.4-11.8 Neutrophils.band form/100 leukocytes in Blood (test code = 45431-9) 65.0 % 44.4-80.1 Lymphocytes/100 leukocytes i n Body fluid (test code = 34747-3) 26.1 % 10.0-50.0 Monocytes/100 leukocytes in Blood by Automated count (test code = 5905-5) 7.0 % 3.6-12.04 Eosinophils/100 leukocytes i n Blood by Automated count (test code = 713-8) 1.4 % 0.0-5.41 Basophils/100 leukocytes in Blood by Automated count (test code = 706-2) 0.6 % 0.0-0.79 [facility] antibody screen [Presence] in Serum or Plasma 2018-09-13 01:15:00* Test Item Value Reference Range Interpretation Comme nts Blood group antibody screen [Presence] in Serum or Plasma (test code = 890-4) negative [facility] RegionHIV 1+2 Ab [Presence] in [id number] 01:15:00HIV P24 AgHIV-1/2 [facility]MaGeorge [facility] HospitalReagin Ab [Presence] in Serum by RPR 2018-09-13 01:15:00* Test Item Value Reference Range Interpretation Comme nts Reagin Ab [Presence] in Seru m by RPR (test code = 85438-2) nonreactive nonreactive [facility] RegionCB W Auto Differential panel - [id number] 01:15:00 * Test Item Value Reference Range Interpretation Comme nts white blood count (test code = white blood count) 8.9 K/uL 4.0-11.5 red blood count (test code = red blood count) 3.62 M/uL 3.80-5.20 L Hemoglobin [Mass/volume] in Blood (test code = 718-7) 11.1 g/dL 10.5-15.7 hematocrit (test code = hematocrit) 34.1 % 34.0-50.0 Erythrocyte mean corpuscular volume [Entitic volume] (test code = 61903-3) 94.3 fL 78-98 Erythrocyte mean corpuscular hemoglobin [Entitic mass] (test code = 32350-8) 30.8 pg 26.2-33.4 mean corpuscular HGB conc (t est code = mean corpuscular HGB conc) 32.7 g/dL 31.5-36.2 red cell distribution width (test code = red cell distribution width) 12.5 % 11.5-15.5 Platelets [#/volume] in Bloo d (test code = 26729-0) 244 K/uL 137-338 Platelet mean volume [Entiti c volume] in Blood (test code = 46789-5) 8.5 fL 8.4-11.8 Neutrophils.band form/100 leukocytes in Blood (test code = 64777-7) 65.0 % 44.4-80.1 Lymphocytes/100 leukocytes i n Body fluid (test code = 75505-4) 26.1 % 10.0-50.0 Monocytes/100 leukocytes in Blood by Automated count (test code = 5905-5) 7.0 % 3.6-12.04 Eosinophils/100 leukocytes i n Blood by Automated count (test code = 713-8) 1.4 % 0.0-5.41 Basophils/100 leukocytes in Blood by Automated count (test code = 706-2) 0.6 % 0.0-0.79 [facility] antibody screen [Presence] in Serum or Plasma 2018-09-13 01:15:00* Test Item Value Reference Range Interpretation Comme nts Blood group antibody screen [Presence] in Serum or Plasma (test code = 890-4) negative [facility] RegionHIV 1+2 Ab [Presence] in [id number] 01:15:00HIV P24 AgHIV-1/2 AbMataH. C. Watkins Memorial HospitalReagin Ab [Presence] in Serum by RPR 2018-09-13 01:15:00* Test Item Value Reference Range Interpretation Comme nts Reagin Ab [Presence] in Seru m by RPR (test code = 29329-7) nonreactive nonreactive [facility]
[2024-03-08] MEDS ORDERED: ACETAMINOPHEN 500 MG TAB ONE (09:54)
[2024-03-08 10:00] LABS: SARS-CoV-2 Antigen CONTROL BLUE LINE VIS/BG OK; SARS-CoV-2 Antigen Rapid Res Negative (Negative)
--- NOTE | 2024-03-08 10:44 | RAD REPORT ---
EXAM DESCRIPTION: RAD - Chest Pa And Lat (2 Views) - 03/08/2024 10:36 am CLINICAL HISTORY: COUGH COMPARISON: Chest Pa And Lat (2 Views) dated 04/21/2019 FINDINGS: Lines: None. Lungs: No evidence of edema or pneumonia. Pleural: No significant pleural effusions or pneumothorax. Cardiac: The heart size is within normal limits. Mediastinum: Within normal limits. Bones: No acute fractures. Other: None IMPRESSION: No acute cardiopulmonary disease.
--- NOTE | 2024-03-08 11:17 | ER ---
Nurse's Notes [facility] Name: Sowmya Cooley Age: 24 yrs Sex: Female : 2000 Arrival Date: 03/08/2024 Time: 09:24 Bed 18 Private MD: Diagnosis: Myalgia;Nasal congestion;Cough;Nausea;Headache Presentation: 03/08 09:26 Chief complaint: Patient states: cough, SOB, and general flu like symptoms x5 days. kc6 states she was on her way here when her body went numb and she pulled over and called EMS. Coronavirus screen: At this time, the client does not indicate any symptoms associated with coronavirus-19. Ebola Screen: No symptoms or risks identified at this time. Initial Sepsis Screen: Does the patient meet any 2 criteria? HR > 90 bpm. Does the patient have a suspected source of infection? No. Patient's initial sepsis screen is negative. Risk Assessment: Do you want to hurt yourself or someone else? Patient reports no desire to harm self or others. Onset of symptoms was March 08, 2024. 09:26 Method Of Arrival: EMS: [facility] 6 09:26 Acuity: ADRYAN 4 kc6 Triage Assessment: 09:28 General: Appears in no apparent distress. comfortable, well groomed, well developed, kc6 Behavior is calm, cooperative, appropriate for age, Reports feeling ill for > 3 days. EENT: No signs and/or symptoms were reported regarding the EENT system. Neuro: Level of Consciousness is awake, alert, obeys commands, Oriented to person, place, time, situation, Appropriate for age Reports headache numbness. Cardiovascular: Capillary refill < 3 seconds. Respiratory: Reports shortness of breath on exertion cough that is non-productive, dry, Airway is patent Trachea midline Respiratory effort is even, unlabored, Respiratory pattern is regular, symmetrical. GI: Reports nausea, Patient currently denies abdominal pain, diarrhea, vomiting. : No signs and/or symptoms were reported regarding the genitourinary system. Derm: No signs and/or symptoms reported regarding the dermatologic system. Skin is intact, is healthy with good turgor, Skin is pink, warm \\T\\ dry. Musculoskeletal: No signs and/or symptoms reported regarding the musculoskeletal system. Circulation, motion, and sensation intact. Capillary refill < 3 seconds, Range of motion: intact in all extremities. 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 - Infectious Disease History:: Denies. - Social history:: Smoking status: Patient denies any tobacco usage or history of. Screenin: [facility] ED Fall Risk Assessment (Adult) History of falling in the last 3 months, kc6 including since admission No falls in past 3 months (0 pts) Confusion or Disorientation No (0 pts) Intoxicated or Sedated No (0 pts) Impaired Gait No (0 pts) Mobility Assist Device Used No (0 pt) Altered Elimination No (0 pt) Score/Fall Risk Level 0 - 2 = Low Risk. Abuse screen: Denies threats or abuse. Denies injuries from another. Nutritional screening: No deficits noted. Tuberculosis screening: No symptoms or risk factors identified. Assessment: :30 Reassessment: please see triage. kc6 10:51 Reassessment: Patient appears in no apparent distress at this time. No changes from [facility] previously documented assessment. Patient and/or family updated on plan of care and expected duration. Pain level reassessed. Patient is alert, oriented x 3, equal unlabored respirations, skin warm/dry/pink. Vital Signs: 09:26 BP 133 / 81; Pulse 105; Resp 20 S; Temp 99.2(O); Pulse Ox 99% ; Weight 61.23 kg (R); kc6 Height 5 ft. 5 in. (R); Pain 3/10; 10:05 BP 126 / 94; Pulse 90; Resp 18 S; Pulse Ox 100% on R/A; kc6 10:52 BP 128 / 92; Pulse 95; Resp 19 S; Pulse Ox 96% on R/A; kc6 09:26 Body Mass Index 22.46 (61.23 kg, 165.1 cm) 6 09:26 Pain Scale: Adult [facility] ED Course: : Patient arrived in ED. kc6 09:27 Baljeet Page DO is Attending Physician. ms3 09:28 Triage completed. kc6 09:28 Arm band placed on. kc6 09:30 Megan Llanos, RN is Primary Nurse. kc6 09:30 Patient has correct armband on for positive identification. Bed in low position. Call kc6 light in reach. Side rails up X2. Pulse ox on. NIBP on. Warm blanket given. Pillow given. 09:30 Maintain EMS IV. Dressing intact. Good blood return noted. Site clean \\T\\ dry. Gauge \\T\\ flor 6 site: 20G RAC. Flushed with 10 mL NS IV is patent, is intact, with fluids infusing freely, with good blood return. 09:42 Radiology exam delayed due to test not completed at this time. ellis 10:04 Diet: Patient given water. Tolerated well. kc6 10:38 Chest Pa And Lat (2 Views) XRAY In Process Unspecified. EDMS 11:15 Lopze Mendoza DO is Referral Physician. ms3 11:26 No provider procedures requiring assistance completed. IV discontinued, intact, kc6 bleeding controlled, No redness/swelling at site. Pressure dressing applied. Administered Medications: 09:58 Drug: Acetaminophen PO 1000 mg PO once {Note: pt states, "usually 500mg works for me so kc6 I'll just take that of that's ok.".} Route: PO; 10:53 Follow up: Response: No adverse reaction kc6 Medication: 11:26 VIS not applicable for this client. kc6 Outcome: 11:16 Discharge ordered by MD. ms3 11:26 Discharged to home ambulatory, kc6 11:26 Condition: good 11:26 Discharge instructions given to patient, Instructed on discharge instructions, follow up and referral plans. medication usage, Demonstrated understanding of instructions, follow-up care, medications, Prescriptions given X 3, 11:27 Patient left the ED. kc6 Signatures: Dispatcher [employer] EDNY Baljeet Page DO DO ms3 Megan Llanos, RN RN kc6 Ashley Zavala
--- NOTE | 2024-03-08 11:17 | EDPHYS ---
Physician Documentation [facility] Name: Sowmya Cooley Age: 24 yrs Sex: Female : 2000 Arrival Date: 03/08/2024 Time: 09:24 Bed 18 Private MD: ED Physician Blajeet Page HPI: 03/08 09:28 This 24 yrs old Female presents to ER via EMS with complaints of Flu Symptoms. [facility] 09:28 24-year-old female with past medical history of heart palpitations presents to the [facility] emergency department via [facility] for cough, congestion, chills that has been ongoing for 4 days. Patient states she was driving to the emergency department when she began coughing and breathing heavy and having paresthesias. She pulled over and called EMS. Patient rates her discomfort a /10.. EVP GENERAL COUNSEL: 09:28 LMP 02/23/2024, unknown kc6 Historical: - Allergies: 09:28 Benadryl; kc6 09:28 Motrin; kc6 - Home Meds: 09:28 None [Active]; kc6 - PMHx: 09:28 heart palpitations; kc6 - PSHx: 09:28 None; kc6 - Immunization history:: Adult Immunizations up to date. - Infectious Disease History:: Denies. - Social history:: Smoking status: Patient denies any tobacco usage or history of. ROS: 09:28 Constitutional: Negative for fever, and chills. Neck: Negative for injury, pain, and ms3 swelling, Cardiovascular: Negative for chest pain, and palpitations. 09:28 MS/Extremity: Negative for injury and deformity, Skin: Negative for injury, rash, and discoloration, 09:28 Respiratory: Positive for cough, Exam: 09:28 Constitutional: This is a well developed, well nourished patient who is awake, alert, ms3 and in no acute distress. Neck: Trachea midline, no cervical lymphadenopathy. Supple, full range of motion without nuchal rigidity, or vertebral point tenderness. No Meningismus. Chest/axilla: Normal chest wall appearance and motion. Nontender with no deformity. 09:28 Respiratory: Lungs have equal breath sounds bilaterally, clear to auscultation and percussion. No rales, rhonchi or wheezes noted. No increased work of breathing, no retractions or nasal flaring. Abdomen/GI: Soft, non-tender, with normal bowel sounds. No distension or tympany. No guarding or rebound. No evidence of tenderness throughout. Skin: Warm, dry with normal turgor. Normal color with no rashes, no lesions, and no evidence of cellulitis. MS/ Extremity: Pulses equal, no cyanosis. Neurovascular intact. Full, normal range of motion. 09:28 Cardiovascular: Rate: tachycardic, Rhythm: regular, Pulses: no pulse deficits are appreciated, Heart sounds: normal, normal S1and S2, Vital Signs: 09:26 BP 133 / 81; Pulse 105; Resp 20 S; Temp 99.2(O); Pulse Ox 99% ; Weight 61.23 kg (R); kc6 Height 5 ft. 5 in. (R); Pain 3/10; 10:05 BP 126 / 94; Pulse 90; Resp 18 S; Pulse Ox 100% on R/A; kc6 10:52 BP 128 / 92; Pulse 95; Resp 19 S; Pulse Ox 96% on R/A; kc6 09:26 Body Mass Index 22.46 (61.23 kg, 165.1 cm) kc6 09:26 Pain Scale: Adult kc6 MDM: 09:27 Patient medically screened. ms3 09:28 Differential Diagnosis: Upper Respiratory Infection Pneumonia. ms3 11:18 Data reviewed: vital signs, nurses notes, lab test result(s), radiologic studies, plain ms3 films, and as a result, I will discharge patient. I considered the following discharge prescriptions or medication management in the emergency department Medications were administered in the Emergency Department. See MAR. Independent interpretation of the following test(s) in the Emergency Department X-Ray: My interpretation is Chest x-ray images reviewed by me do not reveal pneumonia. Counseling: I had a detailed discussion with the patient and/or guardian regarding the historical points, exam findings, and any diagnostic results supporting the discharge/admit diagnosis, lab results, radiology results, the need for outpatient follow up, to return to the emergency department if symptoms worsen or persist or if there are any questions or concerns that arise at home. Special discussion: I discussed with the patient/guardian in detail that at this point there is no indication for admission to the hospital. It is understood, however, that if the symptoms persist or worsen the patient needs to return immediately for re-evaluation. ED course: Discussed labs and imaging with patient. Patient to follow-up with Dr. Mendoza in 2 to 3 days. Patient understands and agrees with plan. All questions were answered. Return precautions discussed include worsening symptoms, or any other concerns. On reevaluation patient is alert and oriented x 4, no apparent distress, nontoxic-appearing, ambulatory emergency department, speaking full sentences.. 03/08 09:28 Order name: Flu; Complete Time: 10:28 ms3 03/08 09:28 Order name: SARS RAPID; Complete Time: 10:28 ms3 03/08 09:28 Order name: Test, Serum; Complete Time: 10:28 ms3 03/08 09:28 Order name: Chest Pa And Lat (2 Views) XRAY; Complete Time: 10:45 ms3 Administered Medications: 09:58 Drug: Acetaminophen PO 1000 mg PO once {Note: pt states, "usually 500mg works for me so kc6 I'll just take that of that's ok.".} Route: PO; 10:53 Follow up: Response: No adverse reaction kc6 Disposition Summary: 03/08/24 11:16 Discharge Ordered Notes: Location: Home ms3 Condition: Stable ms3 Diagnosis - Myalgia ms3 - Nasal congestion ms3 - Cough ms3 - Nausea ms3 - Headache ms3 Followup: ms3 - With: Lopez Mendoza DO - When: 2 - 3 days - Reason: Recheck today's complaints Discharge Instructions: - Discharge Summary Sheet ms3 - Nausea, Adult ms3 - Cough, Adult ms3 Forms: - Medication Reconciliation Form ms3 - Antibiotic Education ms3 - Prescription Opioid Use ms3 - Patient Portal Instructions ms3 - Leadership Thank You Letter ms3 Prescriptions: - Flonase Allergy Relief 50 mcg/actuation Nasal spray, suspension - spray 2 spray INTRANASAL route daily as needed for nasal congestion; administer ms3 into each nostril; 1 unit; Refills: 0, Product Selection Permitted - ondansetron HCl 4 mg Oral tablet - take 1 tablet ORAL route every 8 hours for 3 days as needed for nausea and ms3 vomiting; 15 tablet; Refills: 0, Product Selection Permitted - Claritin 10 mg Oral Tablet - take 1 tablet ORAL route once daily As needed; 30 tablet; Refills: 0, Product ms3 Selection Permitted Signatures: Dispatcher [employer] EDMS Kaylee, Baljeet, DO DO ms3 Megan Llanos, RN RN kc6
[2024-03-08 11:37] VITALS: TEMP 99.2
[2024-03-08 11:42] VITALS: BP 128/92; O2SAT 96
== END 2024-03-08 11:27 | disposition home or self-care (01) ==
LOC: ER 09:24
DX: M79.10 Myalgia, unspecified site (principal); R09.81 Nasal congestion; R05.9 Cough, unspecified; R11.0 Nausea; R51.9 Headache, unspecified; Z11.52 Encounter for screening for COVID-19
CPT/HCPCS: 36415; 71046; 84703; 87804; 87811